=== PATIENT | female | born 1950 | race Caucasian/White ===

== ENCOUNTER → 2023-12-07 07:25 | Outpatient (REF) | payer OTHER, SELFPAY ==
[2023-12-07] MEDS: LEXISCAN 0.400000000000000022 MG IV (09:22)
[2023-12-07] MEDS: FLUSH (NSS) 1 FLUSH IV (09:23)
== END ==
LOC: RCS 07:25
PROVIDERS: ATTENDING PHYSICIAN Nurse Practitioner; FAMILY PHYSICIAN Family Medicine
DX: I25.10 Atherosclerotic heart disease of native coronary artery without angina pectoris (principal); E78.00 Pure hypercholesterolemia, unspecified; R07.89 Other chest pain; Z86.73 Personal history of transient ischemic attack (TIA), and cerebral infarction without residual deficits
CPT/HCPCS: 78452; 93017; A9500; J2785

== ENCOUNTER 2024-01-10 15:03 | Emergency (ER) | payer OTHER, SELFPAY ==
[2024-01-10 15:07] VITALS: BP 120/79
--- NOTE | 2024-01-10 16:47 | ED.MUSCINJ ---
HPI-Injury
General
Chief Complaint: Fall
Source: patient
Exam Limitations: none
Time Seen by Provider: 01/10/24 16:35
Nursing documentation reviewed up to this point in time: agreed with
Travel History
Have you had any contact with someone who has COVID-19?: No
Do you have any symptoms of coronavirus? Fever > 100 degrees, chills, cough, shortness of breath, sore throat, loss of taste or smell, muscle aches, or headache?: No
History of Present Illness-Injury
Is this injury a work related problem?: No
Is pt an associate of [facility]?: No
Initial Injury comments:
Patient states she was trying to carry groceries from car and fell. Hit face on pavement. No LOC. Able to get self up. Complains of abrasions to face, neck pain, ssternum pain, low back pain Brought to ED by spouse for eval
Past History
Past History
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 Improved greatly but with residual left hand and left leg weakness since. Also 'pins and needles' feeling in left leg since the stroke), HTN, Hypercholesterolemia and Other
(Diverticulitis )
ED Past Surgical History: Cardiac (stents 2004), Cholecystectomy and Orthopedic (Laminectomy 2006, bilateral rotator curr surgery. Limited ROM left arm due to rotator cuff problem.)
Social History
Tobacco: Non-smoker
Alcohol: Other
Drug: Other
Personal: Single
Living: with family (with daughter)
Employment: Employed
Family History
Family History: Other
Review of Systems
Review of Systems
Allergies reviewed?: Yes
All Other Systems: ROS reviewed and negative except as documented in HPI and ROS
Constitutional: Reports no symptoms
EENT: Reports no symptoms
Respiratory: Reports no symptoms
Cardiac: Reports no symptoms
ABD/GI: Reports no symptoms
: Reports no symptoms
Musculoskeletal: Reports joint pain (pain to sternum and low back.) and neck pain
Skin: Reports other (abrasions to face (forehead, nose, lip, chin), left dorsal hand)
Neurological: Reports no symptoms
Psychiatric: Reports no symptoms
Musculoskeletal Injury Exam
Musculoskeletal Injury Exam
Sternum:
Pain with Movement?: Moderate
Tender to palpation?: Moderate
Soft tissue swelling?: None
External deformity and angulation?: None
Joint effusion?: None
Contusion?: Moderate
Hematoma-local bleeding into tissue?: None
Strain- Sprain- Tear (Connective tissue injury)?: None
Crepitus with movement?: No
Joint instability?: No
Malalignment/deformity?: No
Range of motion: Limited
Distal skin color and temperature: normal-warm & good color
Capillary Refill: normal
Normal distal neurovascular exam?: No
Lower Back:
Pain with Movement?: Moderate
Tender to palpation?: Moderate
Soft tissue swelling?: None
External deformity and angulation?: None
Joint effusion?: None
Contusion?: None
Hematoma-local bleeding into tissue?: None
Strain- Sprain- Tear (Connective tissue injury)?: Moderate
Crepitus with movement?: No
Joint instability?: No
Malalignment/deformity?: No
Range of motion: Limited
Distal skin color and temperature: normal-warm & good color
Normal distal neurovascular exam?: Yes
Posterior Neck:
Pain with Movement?: Moderate
Tender to palpation?: Moderate
Soft tissue swelling?: None
External deformity and angulation?: None
Joint effusion?: None
Contusion?: None
Hematoma-local bleeding into tissue?: None
Strain- Sprain- Tear (Connective tissue injury)?: Moderate
Crepitus with movement?: No
Joint instability?: No
Malalignment/deformity?: No
Range of motion: Full
Distal skin color and temperature: normal-warm & good color
Capillary Refill: normal
Normal distal neurovascular exam?: Yes
Skin Exam
Abrasion
Face:
Description of abrasion: superfical/clean
Left Dorsal Hand:
Description of abrasion: superfical/clean
Phy Exam
General Physical Exam
General Presentation: well appearing and no apparent distress
General age: appears stated age
General Skin: warm and dry
General Habitus: normal
General Mental: alert
Pulmonary Exam
Pulmonary Exam: lungs clear and no respiratory distress
Gastrointestinal Exam
Gastrointestinal Exam: non tender, soft, no organomegaly, no pulsatile mass, non distended and no cva tenderness
Kandis Coma Scale
Eye Opening: Spontaneous
Verbal Response: Oriented
Motor Response: Obeys Commands
GCS Total Score: 15
Musculoskeletal Exam
Musculoskeletal Exam: neuro vasc intact and other (No hip, lower extremity pain. No upper extermity pain. Full rom bilateral upper and lower extremities)
Skin Exam
Skin Exam: normal color, warm/dry and no rash
Psychiatric Exam
Psychiatric Exam: normal mood/affect
Injury Course
Orders/Labs/Results
Orders:
Orders
01/10/24 15:23
Electrocardiogram (*1) Urgent
Reason for Study: Chest Pain
CT Cervical Spine W/o Iv Contr Urgent
Comment:
Reason For Exam: fall + hit face, on plavix
CT Head W/o Iv Contrast Urgent
Comment:
Reason For Exam: fall + hit face, on plavix
01/10/24 15:24
EKG- Treatment ONCE
01/10/24 16:05
CR Chest - 2 Views Urgent
Comment:
Reason For Exam: fall forward, lower sternal pain
01/10/24 16:46
Lumbar Spine Complete, 4 View [CR Lumbar Spine Comp Min 4 Vw*] Urgent
Comment:
Reason For Exam: fall, pain
Sternum 2 Views CR [CR Sternum Min 2 Views] Urgent
Comment:
Reason For Exam: fall, pain
*Radiology
Radiology exam reviewed: radiology read reviewed
*Pulse Oximetry
Patient hypoxic: no
*Critical Care Note
Total Time (30-74mins, 75-104mins- exclusive of procedures): Not Applicable
ED Attending Note
-
Portions of this chart may have been created with voice recognition software.� Occasional wrong word or��sound alike� substitutions may have occurred due to the inherent limitations of voice recognition software.
Discharge Plan
Departure
Patient Disposition: Home (Routine Discharge)
Date of Disposition: 01/10/24
Time of Disposition: 17:41
Patient with high blood pressure during this ER visit?: No
Condition: Good
Covid-19: Not Applicable
Discharge Problem:
Head injury, Chest wall contusion, Abrasion, multiple sites
Instructions: Low Back Pain (DC), Wound Care (DC), Head Injury in Adults (DC), Contusion (DC), Preventing falls in adults
Prescriptions:
No Action
hydrochlorothiazide 25 MG tablet
25 mg PO DAILY
duloxetine 60 MG capsule,delayed release(DR/EC)
60 mg PO BID
vitamins A,C,[id number] [PreserVision AREDS] 1 CAP capsule
1 cap PO BID
clopidogrel 75 MG tablet
75 mg PO DAILY Qty: 30 0RF
acetaminophen [Tylenol Extra Strength] 500 MG tablet
1,000 mg PO TID
trazodone 100 MG tablet
100 mg PO HS
simvastatin 20 MG tablet
20 mg PO QPM
nitroglycerin 0.4 MG tablet, sublingual
0.4 mg sublingual [id number] PRN (Reason: chest pain)
oxycodone 5 MG tablet
5 - 10 mg PO Q4HPRN PRN (Reason: moderate pain)
Patient Comments:
03/09/2022: last filled 03/01/22, 30 tabs for 5 days from [facility]
multivitamin with folic acid [Tab-A-Yuliya] 1 TABLET tablet
1 tab PO DAILY
albuterol sulfate 18 GM HFA aerosol inhaler
6.7 gm IH Q6HPRN PRN (Reason: shortness of breath) Qty: 1 0RF
Referrals:
Nadeem Hull PA-C [Family Provider] - Follow up in 2-3 days
Interventions
Interventions:
*Risk Screen - Suicide Last Done: 01/10/24 15:08
*General Assessment Last Done: 01/10/24 15:08
ED-Skin Assessment Last Done: 01/10/24 17:10
Discharge Date and Time
Print Language: EGYPTIAN
[2024-01-10 17:56] VITALS: BP 141/74
== END 2024-01-10 18:01 | disposition home or self-care (01) ==
LOC: EMR 15:03
PROVIDERS: EMERGENCY PHYSICIAN Emergency Medicine; FAMILY PHYSICIAN Physician Assistant Medical
DX: S00.81XA Abrasion of other part of head, initial encounter (principal); S00.511A Abrasion of lip, initial encounter; S00.31XA Abrasion of nose, initial encounter; S60.512A Abrasion of left hand, initial encounter; S09.90XA Unspecified injury of head, initial encounter; S20.219A Contusion of unspecified front wall of thorax, initial encounter; W19.XXXA Unspecified fall, initial encounter
CPT/HCPCS: 99285; 70450; 71046; 71120; 72110; 72125; 93005

== ENCOUNTER 2024-07-14 23:40 | Inpatient (IN) | payer OTHER, SELFPAY ==
[2024-07-14 19:02] VITALS: BP 138/76
--- NOTE | 2024-07-14 19:09 | ED.PDOC.TRB ---
ED Provider Triage
-
Patient seen by provider in Triage?: Seen in Triage
Attestation: A medical screening examination has been initiated by a qualified medical provider. Based on the assessment performed at this time, it has been determined that an emergent medical condition may exist and the patient has been informed
that further medical evaluation and possible additional diagnostic testing may be needed.
HPI: 73yoF here after a fall with head strike 1 week ago. She has a history of psoriasis. C/o swelling and significant pain to posterior scalp. Patient admits to picking at her scalp frequently. Also c/o nausea, diarrhea, and decreased appetite.
GENERAL: Alert , in no apparent distress
EYE: No visual abnormalities.
NECK: Trachea midline
ENT: Psoriasis noted to posterior scalp. There is an area of scabbing with surrounding erythema/warmth and significant tenderness.
LUNGS: No acute respiratory distress
NEUROLOGICAL: Alert and oriented
SKIN: Skin intact. No visible changes.
MUSCULOSKELETAL: Moving extremities normally
PSYCH: Normal and appropriate interaction.
This is a medical evaluation conducted in person to initiate diagnostic evaluation and provide initial therapeutics. Please see further documentation by the treating clinician.
CBC, CMP, and CT head ordered.
[2024-07-14 21:33] VITALS: BP 145/72
[2024-07-14 21:34] VITALS: BP 145/72
[2024-07-14 21:43] LABS: % Basophils 0.5 % (0-2); % Eosinophils 0.4 % (0-6); % Immature Granulocytes 1.2 % (0-0.5); % Lymphocytes 8.4 % (20.5-51.1); % Monocytes 6.4 % (1.7-9.3); % Neutrophils 83.1 % (42.2-75.2); Absolute Basophils 0.1 10^3/uL (0-0.2); Absolute Eosinophils 0.1 10^3/uL (0-0.7); Absolute Immature Granulocytes 0.3 10^3/uL (0-0.05); Absolute Lymphocytes 1.9 10^3/uL (1.2-3.4); Absolute Monocytes 1.4 10^3/uL (0.1-0.6); Absolute Neutrophils 18.6 10^3/uL (1.4-6.5); Hematocrit 36.6 % (37.0-47.0); Hemoglobin 13.2 g/dL (12.0-16.0); Mean Corp Hgb Conc. 36.1 g/dL (33.0-37.0); Mean Corpuscular Hgb 30.9 pg (27.0-31.0); Mean Corpuscular Volume 85.7 fL (81.0-99.0); Mean Platelet Volume 8.1 fL (7.4-10.4); Nucleated Red Blood Cells % 0 %; Platelet Count 253 10^3/uL (130-400); Red Blood Cell Count 4.27 10^6/uL (4.20-5.40); Red Cell Dist. Width 12.4 % (11.5-14.5); White Blood Cell Count 22.3 10^3/uL (4.8-10.8)
[2024-07-14 22:00] VITALS: BP 155/83
[2024-07-14 22:07] LABS: ALT (SGPT) 33 U/L (0-35); AST (SGOT) 33 U/L (14-36); Albumin 3.8 g/dl (3.5-5.0); Alkaline Phosphatase 175 U/L (38-126); Blood Urea Nitrogen 6 mg/dl (7-17); Calcium 9.4 mg/dl (8.4-10.2); Carbon Dioxide 30 mmol/L (22-30); Chloride 94 mmol/L (98-107); Glucose 117 mg/dl (70-99); Potassium 3.1 mmol/L (3.5-5.1); Sodium 137 mmol/L (135-145); Total Bilirubin 0.4 mg/dl (0.2-1.3); Total Protein 6.2 g/dl (6.3-8.2); eGFR > 60.00
--- NOTE | 2024-07-14 22:49 | ED.GENMED ---
History of Present Illness
General
Chief Complaint: Head Injury
Source: patient and family
Exam Limitations: none
Time Seen by Provider: 07/14/24 21:50
Nursing documentation reviewed up to this point in time: agreed with
History of Present Illness
History of Present Illness:
73-year-old female with a past medical history of CVA, hypertension, hyperlipidemia, psoriasis who presents to the ER for evaluation of painful lump on the back of the head associate with headaches and fatigue. Patient reports that she has had
itchy area on the occipital scalp for a week or 2. She says that she has been noticing increasing swelling and pain there�initially she thought it was related to a minor trauma on a kitchen cabinet but since then area has started to ooze and become
very red and painful and so she came to the ER for evaluation. She has not had fevers or chills but has had headache and mild nausea. She reports generalized malaise. She also reports mild sore throat�she says she was tested for COVID and flu and
these were negative. She says she was tested for strep and it was negative. She denies any earache. No drainage from the ear. She denies any neck pain. She denies any chest pain, shortness of breath, cough. Denies any significant abdominal
pain. She denies any other complaints. She is on Plavix.
Past History
Past History
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 Improved greatly but with residual left hand and left leg weakness since. Also 'pins and needles' feeling in left leg since the stroke), HTN, Hypercholesterolemia and Other
(Diverticulitis )
ED Past Surgical History: Cardiac (stents 2004), Cholecystectomy and Orthopedic (Laminectomy 2006, bilateral rotator curr surgery. Limited ROM left arm due to rotator cuff problem.)
Social History
Tobacco: Non-smoker
Alcohol: Other
Drug: Other
Personal: Single
Living: with family (with daughter)
Employment: Employed
Family History
Family History: Other
Review of Systems
Review of Systems
All Other Systems: ROS reviewed and negative except as documented in HPI and ROS
Constitutional: Reports fatigue; Denies fever
Respiratory: Denies cough or trouble breathing
Cardiac: Denies chest pain
Musculoskeletal: Reports muscle pain
Neurological: Reports headache; Denies dizzy
Phy Exam
Physical Exam
Physical Exam:
General: Awake, alert, oriented x3; no acute distress
Head: Normocephalic, patient has area of dry flaky skin on the occipital scalp extends towards the mastoid region and towards the crown of the head; there is a boggy central area with superficial wound some purulent drainage, no vesicles noted, area
is diffusely tender and warm
Eyes: Conjunctiva normal, EOMI
Ears: TMs clear bilaterally specifically right TM is clear and no swelling of the pinna on the right
Throat: Airway intact, handling secretions
Neck: Trachea midline, supple without meningismus
Lungs: Clear to auscultation bilaterally, no wheezing, rales, rhonchi
Heart: Regular rate and rhythm, no murmurs, gallops, or rubs
Abd: Soft, non distended, nontender
Neuro: No gross deficits
Skin: no rash
Extremities: Warm and well-perfused
Scores
Heart Failure Risk
Heart Failure Risk Score: Not Applicable
Heart Score for Chest Pain Patients
STEMI patient?: Not applicable
Withdrawal Assessment of Alcohol
Withdrawal Assessment Completed?: Not applicable
Course
Orders/Labs/Results
Orders:
Orders
07/14/24 19:28
CT Head W/o Iv Contrast Urgent
Comment:
Reason For Exam: Head injury, posterior scalp swelling/redness
07/14/24 21:31
Complete Blood Count/With Diff Urgent
Comprehensive Metabolic Panel Urgent
07/14/24 22:44
0.9% Sodium Chloride 1000 ml [Nss] 1,000 ml IV BOLUS
Potassium Chloride [KCl] 40 meq PO NOW STA
07/14/24 23:00
Flush (0.9% Sodium Chloride) [Flush (Nss)] See Dose Instructions IV PER PROTOCOL
07/14/24 23:10
CeFAZolin 1 GRAM [Ancef] 1 gram in 5 ml IV NOW
07/14/24 23:15
Terbinafine HCl [LamISIL] 250 mg PO ONCE ONE
07/14/24 23:17
Admit/Transfer Patient As Directed
Co-Sign Provider:
Level of Care: Inpatient admission
Assign to:: Medical/Surgical
Physician / Group: Htay
Diagnosis: Cellulitis, possible infected hematoma
Reason for Hospitalization: IV abx, Surgical consult
Expected length of stay greater than two midnights?: Yes
ELOS- Estimated Length of Stay in days: 3
I certify the patient meets the requirements for IP care: Yes
07/14/24 23:19
PRN Pain Medication Management As Directed
May give lesser potent ordered pain med per pt: Yes
preference::
Protocol:: Medication orders for pain may be administered in a
manner that supports deferring to patient preference
when the pt is:
- Requesting an ordered lesser potent pain medication.
Least to most potent pain medications are defined
as: acetaminophen < NSAID < tramadol < opioids
(morphine, oxycodone, hydromorphone).
- Requesting a lesser dose of the same medication IF
ORDERED.
- Requesting a less intrusive route of administration
if both routes are prescribed by the provider (PO <
IV).
07/14/24 23:21
Code Status As Directed
Resuscitation Status: Full Code
07/14/24 23:23
Pantoprazole [Protonix IV] 40 mg IV NOW STA
07/14/24 23:26
CeFAZolin 1 GRAM [Ancef] 1 gram in 5 ml IV NOW
07/14/24 23:30
0.9% Sodium Chloride [Nss (Preservative Free)] 10 ml IV NOW STA
07/15/24 01:13
Acetaminophen [Tylenol] 650 mg PO Q4HPRN PRN
Ondansetron Injectable [Zofran] 4 mg IV Q6HPRN PRN
07/15/24 01:13
Consult Notification Routine
Specialty to Notify: Surgical
SURGICAL CONSULT Routine
Consulting Provider: Darryn Sam
Was physician already notified: No
Reason for consult: Possible Infected Scalp Hematoma
Activity As Directed
Activity Level: Out of Bed-Early Mobility
With Assistance
I&O [Intake/ Output] As Directed
Frequency: q12h
Pneumatic Compression Sleeves As Directed
Type: Knee high
Vital Signs As Directed
Frequency: Per unit guidelines
Weight As Directed
Frequency: Daily
DX Deep Vein Thrombosis Video Routine
07/15/24 Breakfast
Regular
At Your Request: Full Participation
Basic Metabolic Panel IN AM
Complete Blood Count/No Diff IN AM
Magnesium IN AM
07/15/24 08:00
CeFAZolin 2 GRAM [Ancef] 2 grams in 10 ml IV Q8H
Duloxetine Delayed Release [Cymbalta Delayed Release] 60 mg PO BID
Pantoprazole [Protonix] 40 mg PO DAILY
07/15/24 18:00
Atorvastatin [Lipitor] 10 mg PO QPM
07/15/24 22:00
Trazodone [Desyrel] 100 mg PO HS
Abnormal Lab Results
07/14/24
21:31
WBC 22.3 H 10^3/uL
(4.8-10.8)
Hct 36.6 L %
(37.0-47.0)
Abs Immat Gran (auto) 0.3 H 10^3/uL
(0-0.05)
Absolute Neuts (auto) 18.6 H 10^3/uL
(1.4-6.5)
Absolute Monos (auto) 1.4 H 10^3/uL
(0.1-0.6)
Immature Gran % 1.2 H %
(0-0.5)
Neutrophils % 83.1 H %
(42.2-75.2)
Lymphocytes % 8.4 L %
(20.5-51.1)
Potassium 3.1 L mmol/L
(3.5-5.1)
Chloride 94 L mmol/L
(98-107)
BUN 6 L mg/dl
(7-17)
Glucose 117 H mg/dl
(70-99)
Alkaline Phosphatase 175 H U/L
(38-126)
Total Protein 6.2 L g/dl
(6.3-8.2)
07/14/24 21:31
07/14/24 21:31
Vital Signs
Initial and Last Documented VS:
Initial Vital Signs
Temp Pulse Resp BP Pulse Ox
36.6 C 86 24 138/76 100
07/14/24 19:02 07/14/24 19:02 07/14/24 19:02 07/14/24 19:02 07/14/24 19:02
Last Documented Vital Signs
Temp Pulse Resp BP Pulse Ox
37.4 C 81 18 125/62 92
07/15/24 01:38 07/14/24 21:33 07/14/24 21:33 07/15/24 02:09 07/15/24 02:30
MDM/Problems Addressed
Differential Diagnosis Includes:
Cellulitis, kerion/fungal infection, shingles
MDM/Problems Addressed:
73-year-old female presents for evaluation of painful bump on the occipital scalp that developed after initially having an itchy area which she reports is psoriasis. Has had multiple constitutional symptoms since. She did have a minor head trauma
about a week ago as well. Vital signs normal here. Exam as above. She had labs in triage including CBC which shows leukocytosis to 22. CMP shows mild hypokalemia. CT head was negative for any acute intracranial pathology. She has an area in
the right occipital scalp does not clearly appear to be a drainable abscess could be phlegmonous changes. Suspect that this is likely cellulitis on area of psoriasis although differential would also include fungal infection with kerion. No
vesicles to suggest shingles. I think given extent, systemic symptoms and developing collection with drainage we will plan to admit for treatment�will plan to treat with IV Ancef, cover with antifungal as well. Case discussed with hospitalist for
admission.
*Radiology
Radiology exam reviewed: radiology read reviewed
*Pulse Oximetry
Patient hypoxic: no
*Critical Care Note
Total Time (30-74mins, 75-104mins- exclusive of procedures): Not Applicable
Data Reviewed
Review of Other/Old Records Reveals: Labs and Records
Source: patient and family
Patient Management
Discussion with other providers: Hospitalist (Discussed with hospitalist) and Radiologist (Discussed with radiologist)
Escalation/DeEscalation of care consider admission/obs:
Admission indicated
ED Attending Note
-
Portions of this chart may have been created with voice recognition software.� Occasional wrong word or��sound alike� substitutions may have occurred due to the inherent limitations of voice recognition software.
Discharge Plan
Departure
Patient Disposition: Admit
Date of Disposition: 07/14/24
Time of Disposition: 22:49
Admit to doctor: Edu
Presentation/result/management discussed w/ accepting MD/DO: Hospitalist
Discharge Problem:
Cellulitis of scalp
Interventions
Interventions:
*Risk Screen - Suicide Last Done: 07/14/24 18:54
*General Assessment Last Done: 07/15/24 00:37
*Neglect/Abuse Screening Last Done: 07/14/24 19:02
ED- Fall Risk Assessment Last Done: 07/15/24 00:37
*ED COVID-19 Vaccine History Last Done: 07/15/24 00:37
ED- Neurological Assessment Last Done: 07/14/24 21:24
ED-Skin Assessment Last Done: 07/14/24 21:24
[2024-07-14 23:00] VITALS: BP 150/69
--- NOTE | 2024-07-14 23:04 | W.PN.UPDATE ---
Update Note
Progress Note Update
This note serves as an addendum to the H&P by diamond driller helper ANCA Irais HOPPERURGSaba URENA
HPI
73F HX CVA in 2002 with left sided hemiparesis, CAD with stent, HTN, Hypercholesterolemia, Diverticulitis pw
fall with head strike 1 week ago.
- reports swelling and significant pain to posterior scalp.
- HX psoriasis.
- Admits to picking at her scalp frequently.
- HX occipital trauma by hitting head with shelf when she bend over then stand up
- reports nausea, diarrhea, and decreased appetite.
PHX: see above
Vital Signs
Temp Pulse Resp BP Pulse Ox
98 F 81 18 145/72 95
07/14/24 19:02 07/14/24 21:33 07/14/24 21:33 07/14/24 21:33 07/14/24 21:33
PE
Gen: Not toxic
HEENT: Psoriasis on posterior scalp. POS area of scabbing with surrounding erythema/warmth and significant tenderness.
Neck: supple
Lung clear s:
Cor: RRR S1 S2
Abdomen: benign exam
ACTING TEACHER: AAO3, NFND
MS: unremarkable
Psych: appropriate
Laboratory Tests
07/14/24
21:31
WBC 22.3 H
Potassium 3.1 L
Chloride 94 L
Creatinine 0.6
eGFR > 60.00
HCT: No acute intracranial abnormality. There is a likely large right posterior scalp hematoma.
Last hospitalist admission: DATE OF ADMISSION: 03/09/2022 - DATE OF DISCHARGE: 03/11/2022
DC Dx; Dyspnea
ASSESSMENT & PLAN
Pending Rx reconciliation
Post scalp SSTI due to suspected infected traumatic scalp hematoma
CT suggest large scalp swelling suspect hematoma
HX occipital trauma by hitting head with shelf when she bend overthen stand up
- agree with IV Cefazolin
- GS consult to evaluate possible I & D
HX CVA (2002) with residual left hand and left leg weakness and paraesthesia-
- Hold STREET SWEEPER Plavix
- cont Zocor
Essential HTN; controlled
- On STREET SWEEPER HCTZ
HX CAD s/p stent -stable
- Hold Plavix
- cont. statin
DVT Px: SCD
Full code
IP MS
--- NOTE | 2024-07-14 23:15 | HPS.HSE ---
Family Physician
-
Family Physician: Hipolito Demarco
Chief Complaint
-
Head Wound
History of Present Illness
Patient is a 73 y/o female past medical history of ASCVD, Hypertension, Hyperlipidemia and Depression who presents with posterior head wound. Patient reports one week ago she was bending over to get something in a tote on the floor, and when she
stood up she hit the back of her head on a shelf. She initially developed a bump on her head, but notes over the past several days it has gotten worse and it now seems to be oozing. She reports increasing pain and redness of the back of head now
extending to the left. She notes she had a low grade fever, and has been experiencing sweats and chills.
Medical History
Past Medical History
Past Medical History: Reports Other
Additional Past Medical History:
Hemorrhagic CVA in 2002
Coronary Artery Disease s/p Stents in 2004
Essential Hypertension
Hyperlipidemia
Depression
Psoriasis
Past Surgical History: Reports Other
Additional Past Surgical History:
Cardiac Stents
Cholecystectomy
Colon Resection for Diverticulitis
Laminectomy
Bilateral Rotator Cuff Surgery
Left Shoulder Replacement
Left Hip Replacement
Social History
Tobacco: Non-smoker
Alcohol: None
Family History
Family History: Not pertinent
Allergies / Home Medications
Allergies reflects when Allergies were last updated in [employer].
Home Medications with original date entered in [employer]
Allergy/Medication List:
Allergies
Allergy/AdvReac Type Severity Reaction Status Date / Time
gabapentin [From Neurontin] Allergy LEG Verified 07/14/24 19:11
SWELLING
hydromorphone HCl Allergy ITCH ALL Verified 07/14/24 19:11
[From Dilaudid] OVER
Iodinated Contrast Media Allergy Anaphylaxis Verified 07/14/24 19:11
Home Medications
duloxetine 60 mg capsule,delayed release 60 mg PO BID Mental Health/Anxiety 10/19/16
hydrochlorothiazide 25 mg tablet 25 mg PO DAILY Fluid retention/Swelling 10/19/16
vitamins A,C,H-jaad-dkbhis 4,296 mcg-226 mg-90 mg capsule (PreserVision AREDS) 1 cap PO BID Supplement 10/19/16
clopidogrel 75 mg tablet 75 mg PO DAILY #30 tabs 10/21/16
multivitamin with folic acid 400 mcg tablet (Tab-A-Yuliya) 1 tab PO DAILY Supplement 03/09/22
nitroglycerin 0.4 mg sublingual tablet 0.4 mg sublingual [id number] PRN chest pain 03/09/22
simvastatin 20 mg tablet 20 mg PO QPM High cholesterol 03/09/22
trazodone 100 mg tablet 100 mg PO HS Sleep 03/09/22
acetaminophen 650 mg tablet,extended release 1,300 mg PO Q12H 07/14/24
Review of Systems
-
A 12 point ROS was completed and negative except as noted: Yes
Constitutional: Reports Chills
Respiratory: Denies Cough or Trouble Breathing
Cardiac: Denies Chest Pain or Palpitations
Abdomen/GI: Reports Nausea; Denies Abdominal Pain or Vomiting
Physical Exam
Vital Signs
Vital Signs
Temp Pulse Resp BP Pulse Ox
98 F 81 18 145/72 95
07/14/24 19:02 07/14/24 21:33 07/14/24 21:33 07/14/24 21:33 07/14/24 21:33
Physical Exam
General: Comfortable and Conversant
HEENT: Anicteric and Moist mucous membranes
Respiratory: Clear and Non Labored Respirations
Cardiac: S1/S2 and Regular Rhythm
GI: Soft and Non Tender
Musculoskeletal: No Clubbing, No Cyanosis and No Edema
Skin: Warm, Dry and Other (Area of psoriasis posterior right scalp; Palpable hematoma posterior right scalp with moderate surrounding area; Small openning noted with apparent serosanguinous drainage)
Neuro: Awake, Alert, Oriented and Nonfocal/grossly intact
Psych: Calm
Laboratory Results
-
07/14/24 21:31
07/14/24 21:31
Laboratory Results
Total Bilirubin 0.4 mg/dl (0.2-1.3) 07/14/24 21:31
AST 33 U/L (14-36) 07/14/24 21:31
ALT 33 U/L (0-35) 07/14/24 21:31
Alkaline Phosphatase 175 U/L (38-126) H 07/14/24 21:31
Data Reviewed
-
Lab Data: Labs Reviewed by me
Old Records: Reviewed
Impression/Plan
-
Posterior Scalp Cellulitis with possible Infected Hematoma
-Consult General Surgery
-Continue Ancef
Hypokalemia, likely due to HCTZ
-Replace potassium
Coronary Artery Disease s/p Stents
-Plavix on hold due to posterior scalp hematoma
Essential Hypertension
-Hold HCTZ
Hyperlipidemia
-Continue simvastatin
Depression
-Continue Cymbalta and Trazodone
Hx Hemorrhagic CVA in 2002
DVT Proph: SCDs
Code Status: Full Code
[2024-07-14] MEDS: KCL 40 MEQ PO (23:20)
[2024-07-14] MEDS: NSS 1000 IV (23:24)
[2024-07-14] MEDS: ANCEF 5 IV ×2 (23:28→23:56)
[2024-07-14] MEDS: PROTONIX IV 40 MG IV (23:56)
[2024-07-14] MEDS: NSS (PRESERVATIVE FREE) 10 ML IV (23:57)
[2024-07-15] VITALS (13 sets, daily range): BP systolic 121–158; BP diastolic 56–76; PULSE 68; BMI 26.8; BMI 27.0
[2024-07-15] MEDS: TYLENOL 650 MG PO ×3 (01:27→15:32)
[2024-07-15 05:48] LABS: Hematocrit 34.6 % (37.0-47.0); Hemoglobin 12.2 g/dL (12.0-16.0); Mean Corp Hgb Conc. 35.3 g/dL (33.0-37.0); Mean Corpuscular Hgb 31.1 pg (27.0-31.0); Mean Corpuscular Volume 88.3 fL (81.0-99.0); Mean Platelet Volume 8.1 fL (7.4-10.4); Platelet Count 205 10^3/uL (130-400); Red Blood Cell Count 3.92 10^6/uL (4.20-5.40); Red Cell Dist. Width 12.2 % (11.5-14.5)
[2024-07-15 06:17] LABS: Blood Urea Nitrogen 3 mg/dl (7-17); Calcium 8.2 mg/dl (8.4-10.2); Carbon Dioxide 27 mmol/L (22-30); Chloride 103 mmol/L (98-107); Estimated Creatinine Clearance 84 ml/min; Glucose 111 mg/dl (70-99); Magnesium 1.8 mg/dl (1.6-2.3); Potassium 3.2 mmol/L (3.5-5.1); Sodium 141 mmol/L (135-145); eGFR > 60.00
[2024-07-15] MEDS: ANCEF 10 IV ×2 (08:01→15:32)
[2024-07-15] MEDS: PROTONIX 40 MG PO (08:02)
[2024-07-15] MEDS: CYMBALTA DELAYED RELEASE 60 MG PO ×2 (08:02→23:16)
[2024-07-15] MEDS: KCL 40 MEQ PO (11:41)
--- NOTE | 2024-07-15 11:41 | W.PN.HOSP.TC ---
Today's Communication/Plan
-
Stool studies
Continue antibiotics
Replete potassium
PT/OT
Assessment / Plan
Assessment / Plan
Gen-AAOx3, NAD
HEENT-NC, AT, anicteric, clear oral mm
Neck-supple
CV-reg, no M, +S1/S2
Lungs-clear B/L
Abd-soft, NT, ND
Ext-no edema
Musculoskeletal-no cyanosis, clubbing
Skin-warm and dry, large posterior scalp open wound, hematoma with drainage and surrounding cellulitis
Neuro-grossly non-focal
Psych-calm, cooperative
Posterior scalp skin and soft tissue infection -due to infected hematoma with drainage. Continue IV antibiotics. General surgery consulted for opinion on I&D. Plavix on hold.
Acute diarrhea -unclear if due to adverse drug reaction versus other etiology. Check stool studies. She was using as needed Imodium prior to admission.
Hypokalemia -possibly due to GI losses. Magnesium normal. Continue oral repletion.
Ambulatory dysfunction -uses a cane. Consult PT/OT.
CAD -history of stents 2004. Plavix on hold due to hematoma. Resume as soon as possible.
History of hemorrhagic stroke 2002 -left hemiparesis.
Essential hypertension -stable.
Hyperlipidemia -on simvastatin.
Depression
Diverticulosis
Psoriasis
Full code
Anticipated Discharge: Within 24 hours
Subjective/Interval History
-
Date of Service: July 15, 2024
Patient seen and examined. Complaining of diarrhea.
Objective Data
-
Labs:
Laboratory Results
07/15/24
05:37
WBC 21.0 H
Hgb 12.2
Hct 34.6 L
Plt Count 205
Sodium 141
Potassium 3.2 L
Chloride 103
Carbon Dioxide 27
BUN 3 L
Creatinine 0.5 L
Glucose 111 H
Calcium 8.2 L
Vital Signs:
Vital Signs
Temp Pulse Resp BP Pulse Ox
98.4 F 80 18 135/65 96
07/15/24 08:06 07/15/24 08:06 07/15/24 08:06 07/15/24 08:06 07/15/24 08:06
Review of Systems
-
History Source: Patient
All other systems: Reviewed and negative
--- NOTE | 2024-07-15 12:19 | CON.GS ---
Medical History
-
Chief Complaint: Scalp hematoma
History of Present Illness:
Patient is a 73 yo F with a PMH of HTN, HLD, CAD s/p PCI with stents in 2004 (on DAPT, LD Plavix on 07/13), psoriasis, s/p laparoscopic cholecystectomy, s/p partial colectomy for diverticulitis, s/p multiple orthopedic interventions. Ms. Muniz
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 She notes a bump overlying her head. Intermittent oozing. No worsening pain. Low-grade fevers.
Associated headache. No visual disturbances. She denies loss of consciousness during the episode. Of note, she has psoriasis overlying her posterior scalp. She states that this is better chronically.
Past Medical History
Past Medical History: CAD, HTN, Hypercholesterolemia, Psychiatric (Depression/anxiety) and Other ( Psoriasis)
Past Surgical History: Bowel Resection (Partial colectomy for diverticulitis), Cardiac (PCI with stents), Cholecystectomy and Orthopedic (Laminectomy, bilateral rotator cuff, LEFT shoulder, LEFT hip)
Social History
Tobacco: Non-Smoker
Alcohol: None
Drug: None
Family History
Family History: Reviewed & Not Pertinent
Allergies / Home Medications
Allergy/AdvReac Type Severity Reaction Status Date / Time
gabapentin [From Neurontin] Allergy LEG Verified 07/14/24 19:11
SWELLING
hydromorphone HCl Allergy ITCH ALL Verified 07/14/24 19:11
[From Dilaudid] OVER
Iodinated Contrast Media Allergy Anaphylaxis Verified 07/14/24 19:11
�Medication �Instructions �Recorded �Confirmed �Type
duloxetine 60 mg capsule,delayed 60 mg PO BID Mental Health/Anxiety 10/19/16 07/15/24 History
release
hydrochlorothiazide 25 mg tablet 25 mg PO DAILY Fluid 10/19/16 07/15/24 History
retention/Swelling
vitamins A,C,Q-wmbf-muzopt 4,296 1 cap PO BID Supplement 10/19/16 07/15/24 History
mcg-226 mg-90 mg capsule
(PreserVision AREDS)
clopidogrel 75 mg tablet 75 mg PO DAILY #30 tabs 10/21/16 07/15/24 Rx
multivitamin with folic acid 400 1 tab PO DAILY Supplement 03/09/22 07/15/24 History
mcg tablet (Tab-A-Yuliya)
nitroglycerin 0.4 mg sublingual 0.4 mg sublingual [id number] PRN 03/09/22 07/15/24 History
tablet chest pain
simvastatin 20 mg tablet 20 mg PO QPM High cholesterol 03/09/22 07/15/24 History
trazodone 100 mg tablet 100 mg PO HS Sleep 03/09/22 07/15/24 History
acetaminophen 650 mg 1,300 mg PO Q12H 07/14/24 07/15/24 History
tablet,extended release
cyclosporine 0.05 % eye drops in a 1 drp BOTH EYES Q12H 07/15/24 07/15/24 History
dropperette (Restasis)
loperamide 2 mg tablet 2 mg PO BIDPRN PRN diarrhea 07/15/24 07/15/24 History
tramadol 50 mg tablet 50 mg PO BIDPRN PRN moderate pains 07/15/24 07/15/24 History
Review of Systems
-
A 10 point review of systems was completed, and was negative except as per HPI.
Physical Exam
Vital Signs
Temp Pulse Resp BP Pulse Ox
98.4 F 80 18 135/65 96
07/15/24 08:06 07/15/24 08:06 07/15/24 08:06 07/15/24 08:06 07/15/24 08:06
07/14/24 07/15/24 07/16/24
06:59 06:59 06:59
Actual Weight 77.467 kg 78.1 kg
Body Mass Index (BMI) 27.0
Lab Results
07/15/24 05:37
07/15/24 05:37
WBC 21.0 10^3/uL (4.8-10.8) H 07/15/24 05:37
Hgb 12.2 g/dL (12.0-16.0) 07/15/24 05:37
Hct 34.6 % (37.0-47.0) L 07/15/24 05:37
Plt Count 205 10^3/uL (130-400) 07/15/24 05:37
Abs Immat Gran (auto) 0.3 10^3/uL (0-0.05) H 07/14/24 21:31
Neutrophils % 83.1 % (42.2-75.2) H 07/14/24 21:31
Physical Exam
General: Well Developed, Well Nourished and No Apparent Distress
HEENT: Other (Posterior scalp with 6 to 7 cm area of swelling, slightly firm, no significant induration, dried blood and scab overlying, surrounding blanching erythema, minimal tenderness, no active drainage)
Respiratory: Non Labored Respirations
GI: Soft, Non Tender and Non Distended
Musculoskeletal: No Edema
Skin: Warm and Dry
Neuro: Nonfocal/Grossly Intact
Data Reviewed
-
CT Scan: Image Personally Visualized and interpreted and Report Reviewed by me
Labs: Labs Reviewed by me
Assessment / Plan
-
Patient is a 73 yo F p/w traumatic posterior scalp hematoma with question of superimposed infection
Infections of the scalp are rare due to the robust blood supply, however, certainly possible especially with underlying hematoma and poor hygiene/attention over the previous week. Physical exam clouded by underlying psoriasis with baseline
erythema. CT scan without clear rim-enhancing collection or air. Elevated white count is concerning. No fever since admission. Patient is a poor surgical candidate at this time given recent Plavix as well as oral intake just prior to the
encounter. No need for emergent operative drainage or intervention at this time. Recommend compression with ice as well as IV antibiotics. Will continue to monitor and may need operative exploration and drainage if no improvement over the ensuing
24 to 48 hours. All questions answered.
-- NPO PM
-- Hold Plavix
-- Abx: Ancef
-- Ice and compression
[2024-07-15] MEDS: LIPITOR 10 MG PO (17:58)
--- NOTE | 2024-07-15 18:12 | PTCARENOTE ---
admitted to room 324 from ED. VSS. AOx3. Able to ambulate w/ supervision and own single point cane. Discussed plan of care. Hematoma noted, outlined w/ skin marker, ice applied. Encouraged to continue to make needs known.
[2024-07-15] MEDS: KCL 20 MEQ PO (23:16)
[2024-07-15] MEDS: DESYREL 100 MG PO (23:44)
[2024-07-15] MEDS: TYLENOL 1000 MG PO (23:58)
[2024-07-16] MEDS: ANCEF 10 IV ×3 (00:15→16:30)
[2024-07-16 06:26] LABS: % Basophils 0.4 % (0-2); % Eosinophils 0.7 % (0-6); % Immature Granulocytes 1.9 % (0-0.5); % Lymphocytes 11.6 % (20.5-51.1); % Neutrophils 79.4 % (42.2-75.2); Absolute Basophils 0.1 10^3/uL (0-0.2); Absolute Eosinophils 0.1 10^3/uL (0-0.7); Absolute Immature Granulocytes 0.3 10^3/uL (0-0.05); Absolute Lymphocytes 2.1 10^3/uL (1.2-3.4); Absolute Monocytes 1.1 10^3/uL (0.1-0.6); Absolute Neutrophils 14.1 10^3/uL (1.4-6.5); Hematocrit 33.7 % (37.0-47.0); Mean Corp Hgb Conc. 35.6 g/dL (33.0-37.0); Mean Corpuscular Hgb 31.7 pg (27.0-31.0); Mean Corpuscular Volume 89.2 fL (81.0-99.0); Mean Platelet Volume 8.1 fL (7.4-10.4); Nucleated Red Blood Cells % 0 %; Platelet Count 220 10^3/uL (130-400); Red Blood Cell Count 3.78 10^6/uL (4.20-5.40); Red Cell Dist. Width 12.5 % (11.5-14.5); White Blood Cell Count 17.8 10^3/uL (4.8-10.8)
[2024-07-16 07:00] VITALS: BP 94/58
[2024-07-16 07:07] LABS: Blood Urea Nitrogen 5 mg/dl (7-17); Calcium 8.7 mg/dl (8.4-10.2); Carbon Dioxide 26 mmol/L (22-30); Chloride 103 mmol/L (98-107); Estimated Creatinine Clearance 84 ml/min; Glucose 98 mg/dl (70-99); Potassium 3.8 mmol/L (3.5-5.1); Sodium 140 mmol/L (135-145); eGFR > 60.00
--- NOTE | 2024-07-16 08:00 | PTCARENOTE ---
@6500;Verbally instructed TERRI Sheridan ,on pt's c/o #10 pain at hematoma site and headache.Tylenol 1000mg po ordered and administered.
[2024-07-16] MEDS: CYMBALTA DELAYED RELEASE 60 MG PO ×2 (08:02→23:05)
[2024-07-16] MEDS: PROTONIX 40 MG PO (08:02)
[2024-07-16] MEDS: KCL 20 MEQ PO ×2 (08:03→23:00)
[2024-07-16] MEDS: ULTRAM 25 MG PO ×2 (11:05→22:55)
[2024-07-16] MEDS: 0.45%NACL 1000 IV (11:06)
--- NOTE | 2024-07-16 13:18 | W.PN.HOSP.TC ---
Today's Communication/Plan
-
Continue antibiotics
CBC in the morning
General Surgery follow-up
Assessment / Plan
Assessment / Plan
Gen-AAOx3, NAD
HEENT-NC, AT, anicteric, clear oral mm
Neck-supple
CV-reg, no M, +S1/S2
Lungs-clear B/L
Abd-soft, NT, ND
Ext-no edema
Musculoskeletal-no cyanosis, clubbing
Skin-warm and dry, large posterior scalp open wound, hematoma with drainage and surrounding cellulitis
Neuro-grossly non-focal
Psych-calm, cooperative
Posterior scalp skin and soft tissue infection -due to infected hematoma with drainage. Suspect patient was picking at her wound prior to admission which may have triggered the infection of the hematoma.
Continue IV antibiotics. Plavix on hold for potential incision and drainage by general surgery currently recommends holding off.
Afebrile today, WBCs trending down. Cellulitis surrounding the wound looks improved today compared to yesterday. Drainage appears to be improving as well.
Due to complaints of ongoing scalp pain from the wound infection tramadol as needed added.
Acute diarrhea -unclear if due to adverse drug reaction versus other etiology. No diarrhea so far today. If diarrhea recurs, send stool studies.
Hypokalemia -possibly due to GI losses. Magnesium normal. Continue oral repletion. Potassium improving.
Ambulatory dysfunction -uses a cane. PT/OT recommend home health.
CAD -history of stents 2004. Plavix on hold due to hematoma. Resume as soon as possible.
History of hemorrhagic stroke 2002 -left hemiparesis.
Essential hypertension -stable.
Hyperlipidemia -on simvastatin.
Depression
Diverticulosis
Psoriasis
Full code
Anticipated Discharge: Within 24 hours
Subjective/Interval History
-
Date of Service: July 16, 2024
Patient seen and examined. Complaining of pain over scalp wound.
Objective Data
-
Labs:
Laboratory Results
07/16/24
06:16
WBC 17.8 H
Hgb 12.0
Hct 33.7 L
Plt Count 220
Sodium 140
Potassium 3.8
Chloride 103
Carbon Dioxide 26
BUN 5 L
Creatinine 0.5 L
Glucose 98
Calcium 8.7
Vital Signs:
Vital Signs
Temp Pulse Resp BP Pulse Ox
98.3 F 76 16 94/58 94
07/16/24 07:00 07/16/24 07:00 07/16/24 07:00 07/16/24 07:00 07/16/24 10:23
Review of Systems
-
History Source: Patient
All other systems: Reviewed and negative
--- NOTE | 2024-07-16 14:48 | W.PN.GS2 ---
Today's Communication / Plan
-
IV abx
Assessment / Plan
-
73F with suspected infected scalp hematoma
Improving on abx
No plan for surgical intervention
Cont IV abx
OK for diet, ADAT
GS will follow peripherally
Subjective Data
-
Date of Service: July 16, 2024
AFVSS, no complaints
Objective Data
-
Intake and Output
07/15/24 07/16/24 07/17/24
06:59 06:59 06:59
Other:
Number of approximated MODERATE 2
amounts of urine
Vital Signs
Temp Pulse Resp BP Pulse Ox
98.3 F 76 16 94/58 94
07/16/24 07:00 07/16/24 07:00 07/16/24 07:00 07/16/24 07:00 07/16/24 10:23
Lab Results
07/16/24 06:16
07/16/24 06:16
Calcium 8.7 mg/dl (8.4-10.2) 07/16/24 06:16
Magnesium 1.8 mg/dl (1.6-2.3) 07/15/24 05:37
Total Bilirubin 0.4 mg/dl (0.2-1.3) 07/14/24 21:31
AST 33 U/L (14-36) 07/14/24 21:31
ALT 33 U/L (0-35) 07/14/24 21:31
Alkaline Phosphatase 175 U/L (38-126) H 07/14/24 21:31
Total Protein 6.2 g/dl (6.3-8.2) L 07/14/24 21:31
Albumin 3.8 g/dl (3.5-5.0) 07/14/24 21:31
Physical Exam
-
Gen: NAD
Scalp, psoriatic lesion with scant serous weeping and crusting, erythema has retreated from drawn border
[2024-07-16 15:00] VITALS: BP 92/70
[2024-07-16 15:08] VITALS: BP 92/70; PULSE 85; O2SAT 95
--- NOTE | 2024-07-16 16:46 | CM ---
Reviewed chart, met with patient to obtain information for assessment. Patient stated that she lives alone in a single home with no steps to enter. She is all on one floor. She described herself as independent with her ADLs, personal care, dressing
and bathing. She does not have an assistive device to help support her ambulation but she owns a quad cane. She can do sanforizer, cook, clean and do laundry. She drives and can get herself to all of her appointments and does all of her own
shopping.
Patient has had VN in the past through [place].
She has been to SNF at [facility].
Patient has a prescription plan and uses, [facility] in [place] for all of her medications.
Patient's PCP is, Hipolito Demarco.
Patient is hoping to be able to return home when stable. She would be agreeable to VN.
Plan: Case management will continue to follow and assist with discharge planning. Tentative Home VN if needed.
[2024-07-16] MEDS: LIPITOR 10 MG PO (17:17)
[2024-07-16] MEDS: DESYREL 100 MG PO (22:57)
[2024-07-16 23:37] VITALS: BP 141/68
--- NOTE | 2024-07-17 00:59 | PTCARENOTE ---
RN paged for new IV
R hand IV dressing changed, blood return noted.
New IV placed #20 in R AC, flushed well and blood return noted.
Patient tolerated well.
[2024-07-17] MEDS: ANCEF 10 IV ×4 (01:11→23:53)
[2024-07-17] MEDS: TYLENOL 1000 MG PO (02:14)
[2024-07-17 06:00] VITALS: BMI 27.0
[2024-07-17 07:20] LABS: % Basophils 0.5 % (0-2); % Eosinophils 0.9 % (0-6); % Immature Granulocytes 1.9 % (0-0.5); % Monocytes 6.6 % (1.7-9.3); % Neutrophils 76.1 % (42.2-75.2); Absolute Basophils 0.1 10^3/uL (0-0.2); Absolute Eosinophils 0.1 10^3/uL (0-0.7); Absolute Immature Granulocytes 0.3 10^3/uL (0-0.05); Absolute Lymphocytes 2.2 10^3/uL (1.2-3.4); Absolute Neutrophils 11.9 10^3/uL (1.4-6.5); Hematocrit 32.3 % (37.0-47.0); Hemoglobin 11.1 g/dL (12.0-16.0); Mean Corp Hgb Conc. 34.4 g/dL (33.0-37.0); Mean Corpuscular Hgb 30.1 pg (27.0-31.0); Mean Corpuscular Volume 87.5 fL (81.0-99.0); Mean Platelet Volume 8.3 fL (7.4-10.4); Nucleated Red Blood Cells % 0 %; Platelet Count 226 10^3/uL (130-400); Red Blood Cell Count 3.69 10^6/uL (4.20-5.40); Red Cell Dist. Width 12.6 % (11.5-14.5); White Blood Cell Count 15.7 10^3/uL (4.8-10.8)
[2024-07-17 08:01] VITALS: BP 105/50
[2024-07-17 08:09] LABS: Blood Urea Nitrogen 6 mg/dl (7-17); Calcium 8.6 mg/dl (8.4-10.2); Carbon Dioxide 26 mmol/L (22-30); Chloride 102 mmol/L (98-107); Estimated Creatinine Clearance 84 ml/min; Glucose 94 mg/dl (70-99); Potassium 3.6 mmol/L (3.5-5.1); Sodium 139 mmol/L (135-145); eGFR > 60.00
[2024-07-17] MEDS: PROTONIX 40 MG PO (08:48)
[2024-07-17] MEDS: KCL 20 MEQ PO ×2 (08:48→19:58)
[2024-07-17] MEDS: CYMBALTA DELAYED RELEASE 60 MG PO ×2 (08:48→19:59)
[2024-07-17] MEDS: TYLENOL 650 MG PO ×3 (09:03→22:16)
--- NOTE | 2024-07-17 12:33 | W.PN.HOSP.TC ---
Today's Communication/Plan
-
Continue antibiotics
Add bowel regimen
Await surgical input
Assessment / Plan
Assessment / Plan
Gen-AAOx3, NAD
HEENT-NC, AT, anicteric, clear oral mm
Neck-supple
CV-reg, no M, +S1/S2
Lungs-clear B/L
Abd-soft, NT, ND
Ext-no edema
Musculoskeletal-no cyanosis, clubbing
Skin-warm and dry, large posterior scalp open wound, hematoma with drainage and surrounding cellulitis
Neuro-grossly non-focal
Psych-calm, cooperative
Posterior scalp skin and soft tissue infection -due to infected hematoma with drainage. No evidence of sepsis. Suspect patient was picking at her wound prior to admission which may have triggered the infection of the hematoma.
Continue IV antibiotics. Plavix on hold for potential incision and drainage, but general surgery currently recommends holding off.
Afebrile today, WBCs trending down. Cellulitis surrounding the wound looks improved today compared to yesterday. Drainage appears to be improving as well.
Due to complaints of ongoing scalp pain from the wound infection tramadol as needed added.
Acute diarrhea -unclear if due to adverse drug reaction versus other etiology. No diarrhea so far today. If diarrhea recurs, send stool studies.
Hypokalemia -possibly due to GI losses. Magnesium normal. Continue oral repletion. Potassium improving.
Ambulatory dysfunction -uses a cane. PT/OT recommend home health.
CAD -history of stents 2004. Plavix on hold due to hematoma. Resume as soon as possible.
History of hemorrhagic stroke 2002 -left hemiparesis.
Essential hypertension -stable.
Hyperlipidemia -on simvastatin.
Depression
Diverticulosis
Psoriasis
Full code
Anticipated Discharge: Within 24 hours
Subjective/Interval History
-
Date of Service: July 17, 2024
Patient seen and examined. Still with posterior scalp pain. Complaining of drainage.
Objective Data
-
Labs:
Laboratory Results
07/17/24
06:42
WBC 15.7 H
Hgb 11.1 L
Hct 32.3 L
Plt Count 226
Sodium 139
Potassium 3.6
Chloride 102
Carbon Dioxide 26
BUN 6 L
Creatinine 0.5 L
Glucose 94
Calcium 8.6
Vital Signs:
Vital Signs
Temp Pulse Resp BP Pulse Ox
97.9 F 73 18 105/50 95
07/17/24 08:01 07/17/24 08:01 07/17/24 08:01 07/17/24 08:01 07/17/24 08:01
I&O
07/16/24 07/17/24 07/18/24
06:59 06:59 06:59
Intake Total 560 / 560
Balance 560 / 560
Review of Systems
-
History Source: Patient
All other systems: Reviewed and negative
[2024-07-17] MEDS: MIRALAX 17 GRAMS PO (13:21)
--- NOTE | 2024-07-17 15:53 | W.PN.GS2 ---
Today's Communication / Plan
-
`
Assessment / Plan
-
Assessment: 73-year-old female with large posterior occipital scalp hematoma and superimposed cellulitis; possible infected hematoma component/abscess as well
Given degree of fluctuance and likelihood that this will spontaneously either rupture or decompress with expectant management discussed with patient option for surgical drainage versus continued expectant management with oral antibiotic therapy
alone.
After our discussions patient wishes to proceed with surgical management
Evacuation/drainage posterior scalp hematoma/fluid collection was reviewed in detail with the patient including the operative technique, alternative treatment options, benefits and potential risks particularly as a relates to bleeding and delayed
wound healing/infectious related complications.
Plan: Patient is added onto the OR schedule for 07/18/2024
Continue to hold Plavix given plan for surgery tomorrow
Continue current antibiotics
N.p.o. tomorrow for OR; IV fluids while n.p.o.
will type and screen with a.m. labs out of precaution
Subjective Data
-
Date of Service: July 17, 2024
Patient seen and examined
She offers no complaints other than discussing surgical treatment plan for her scalp collection/hematoma
Area remains painful and tender
Objective Data
-
Intake and Output
07/16/24 07/17/24 07/18/24
06:59 06:59 06:59
Intake Total 560 / 560
Balance 560 / 560
Intake:
Oral fluids 560 / 560
Other:
Number of approximated MODERATE 2 4
amounts of urine
Vital Signs
Temp Pulse Resp BP Pulse Ox
97.9 F 73 18 105/50 95
07/17/24 08:01 07/17/24 08:01 07/17/24 08:01 07/17/24 08:01 07/17/24 08:01
Lab Results
07/17/24 06:42
07/17/24 06:42
Calcium 8.6 mg/dl (8.4-10.2) 07/17/24 06:42
Magnesium 1.8 mg/dl (1.6-2.3) 07/15/24 05:37
Total Bilirubin 0.4 mg/dl (0.2-1.3) 07/14/24 21:31
AST 33 U/L (14-36) 07/14/24 21:31
ALT 33 U/L (0-35) 07/14/24 21:31
Alkaline Phosphatase 175 U/L (38-126) H 07/14/24 21:31
Total Protein 6.2 g/dl (6.3-8.2) L 07/14/24 21:31
Albumin 3.8 g/dl (3.5-5.0) 07/14/24 21:31
Physical Exam
-
NAD AAOx3
Large right posterior occipital area of fluctuance, faint erythema and surrounding ecchymosis/induration
Tenderness to touch but not warm no active drainage but scabbing/eschar likely noted around skin/hair
[2024-07-17 16:04] VITALS: BP 123/65; O2SAT 98
[2024-07-17 16:43] VITALS: BP 137/71
[2024-07-17] MEDS: LIPITOR 10 MG PO (17:30)
--- NOTE | 2024-07-17 18:45 | PTCARENOTE ---
Addendum entered by Katrina Mas RN 07/17/24 18:48:
patient medicated with PRN Tylenol for c/o of posterior head pain with good relief, posterior head remains painful and tender. area with fluctuance, erythema, tenderness,ecchymosis, induration with scabbing/eschar?, psoriasis patch imbedded in hair.
tolerating diet, sitting oob in chair most of day, vss, will continue to monitor.
Original Note:
patient medicated with PRN Tylenol for c/o of posterior head pain with good relief, posterior head remains painful and tender. area with fluctuance, erythema, tenderness,ecchymosis, induration with scabbing/eschar?, psoriasis patch imbedded in hair.
tolerating diet, sitting oob most of day, vss, will continue to monitor.
[2024-07-17] MEDS: ULTRAM 25 MG PO (20:02)
[2024-07-17] MEDS: DESYREL 100 MG PO (21:31)
[2024-07-17 23:27] VITALS: BP 135/58
[2024-07-18] VITALS (13 sets, daily range): BP systolic 120–142; BP diastolic 63–80; BMI 26.4
[2024-07-18 06:30] LABS: % Basophils 0.4 % (0-2); % Eosinophils 1.4 % (0-6); % Immature Granulocytes 1.8 % (0-0.5); % Monocytes 5.7 % (1.7-9.3); % Neutrophils 77.7 % (42.2-75.2); Absolute Basophils 0.1 10^3/uL (0-0.2); Absolute Eosinophils 0.2 10^3/uL (0-0.7); Absolute Immature Granulocytes 0.3 10^3/uL (0-0.05); Absolute Lymphocytes 2.1 10^3/uL (1.2-3.4); Absolute Monocytes 0.9 10^3/uL (0.1-0.6); Absolute Neutrophils 12.3 10^3/uL (1.4-6.5); Hematocrit 33.1 % (37.0-47.0); Hemoglobin 11.7 g/dL (12.0-16.0); Mean Corp Hgb Conc. 35.3 g/dL (33.0-37.0); Mean Corpuscular Hgb 31.8 pg (27.0-31.0); Mean Corpuscular Volume 89.9 fL (81.0-99.0); Nucleated Red Blood Cells % 0 %; Platelet Count 209 10^3/uL (130-400); Red Blood Cell Count 3.68 10^6/uL (4.20-5.40); Red Cell Dist. Width 12.5 % (11.5-14.5); White Blood Cell Count 15.8 10^3/uL (4.8-10.8)
[2024-07-18] MEDS: ANCEF 10 IV ×3 (09:13→23:51)
[2024-07-18] MEDS: NSS 1000 IV (09:15)
[2024-07-18] MEDS: TYLENOL 650 MG PO (09:16)
[2024-07-18] MEDS: PROTONIX 40 MG PO (09:24)
[2024-07-18] MEDS: CYMBALTA DELAYED RELEASE 60 MG PO ×2 (09:24→22:26)
[2024-07-18] MEDS: KCL 20 MEQ PO ×2 (09:25→20:20)
[2024-07-18] MEDS: MIRALAX PO (09:25)
--- NOTE | 2024-07-18 11:15 | PTCARENOTE ---
Report given to MELISSA Aguilar. Pt sent to OR.
--- NOTE | 2024-07-18 11:50 | W.PN.HOSP.TC ---
Today's Communication/Plan
-
OR today
Assessment / Plan
Assessment / Plan
Gen-AAOx3, NAD
HEENT-NC, AT, anicteric, clear oral mm
Neck-supple
CV-reg, no M, +S1/S2
Lungs-clear B/L
Abd-soft, NT, ND
Ext-no edema
Musculoskeletal-no cyanosis, clubbing
Skin-warm and dry, large posterior scalp open wound, hematoma with drainage and surrounding cellulitis
Neuro-grossly non-focal
Psych-calm, cooperative
Posterior scalp skin and soft tissue infection -due to infected hematoma with drainage. No evidence of sepsis. Suspect patient was picking at her wound prior to admission which may have triggered the infection of the hematoma.
WBC count stable at 15.8k.
Continue IV antibiotics. Plavix on hold.
Gen surgery plans on drainage of hematoma/fluid collection today.
Acute diarrhea -resolved.
Hypokalemia -possibly due to GI losses. Magnesium normal. Continue oral repletion. Potassium improving.
Ambulatory dysfunction -uses a cane. PT/OT recommend home health.
CAD -history of stents 2004. Plavix on hold due to hematoma. Resume as soon as possible.
History of hemorrhagic stroke 2002 -left hemiparesis.
Essential hypertension -stable.
Hyperlipidemia -on simvastatin.
Depression
Diverticulosis
Psoriasis
Full code
Anticipated Discharge: 24 - 48 hours
Subjective/Interval History
-
Date of Service: July 18, 2024
Patient seen/examined. Still with pain in posterior scalp.
Objective Data
-
Labs:
Laboratory Results
07/18/24
05:53
WBC 15.8 H
Hgb 11.7 L
Hct 33.1 L
Plt Count 209
Vital Signs:
Vital Signs
Temp Pulse Resp BP Pulse Ox
98.4 F 75 16 132/77 92
07/18/24 07:05 07/18/24 07:05 07/18/24 07:05 07/18/24 07:05 07/18/24 07:05
I&O
07/17/24 07/18/24 07/19/24
06:59 06:59 06:59
Intake Total 560 / 560 480 / 480
Balance 560 / 560 480 / 480
Review of Systems
-
History Source: Patient
All other systems: Reviewed and negative
--- NOTE | 2024-07-18 12:27 | W.SUR.PREOP ---
Pre-Operative Surgical Note
-
I have examined this patient prior to the performance of the scheduled procedure.
The patient's condition is unchanged from the time of the current History and
Physical and the patient is able to undergo the scheduled procedure.
--- NOTE | 2024-07-18 14:26 | W.IMMPOSTOP ---
Addendum entered and electronically signed by Darryn Sam MD 07/18/24 14:45:
#[id number]
Original Note:
Surgical Immed Post Op Note
-
Primary Surgeon: Cecy
Assisting Surgeon: Linette Fletcher PA-C
Pre-op Diagnosis: Infected scalp hematoma with cellulitis
Post-op Diagnosis: Infected scalp hematoma/abscess
Procedure Performed: Evacuation and sharp excisional debridement large scalp abscess/hematoma
Anesthesia Type: General LMA +1% lidocaine with epinephrine
Specimen / Cultures: None/abscess cultures
Estimated Blood Loss: 44 mL
Complications: None immediate
Operative Findings: Large degloving scalp hematoma essentially completely occupied by purulent fluid. Overlying dermal eschar excised and abscess cavity fully evacuated. Open wound measures 10.5 cm x 4 cm and 0.5 cm deep at the end of the
procedure. Packed open scalp wound with 2 Betadine 4 x 4's. Scalp dermis approximated overlying packing to keep it in place and to assist with postoperative hemostasis.
Plan: Please continue to hold clopidogrel for hemostasis
Current packing will stay in place through the weekend
Patient will return to the OR on Sunday for wound washout
Updated patient's via phone call postoperatively
[2024-07-18] MEDS: SUBLIMAZE 25 MCG IV (14:48)
--- NOTE | 2024-07-18 14:56 | PHA.VAN.IN ---
Assessment
- Assessment
Renal Function: Appears similar to baseline
Concomitant Antimicrobials: ANCEF
- Previous Dosing Experience
Previous Regimen: NONE
AUC Dosing Plan
- Dosing Variables
Dosing Weight (kg): 76.3
Dosing CrCl (ml/min): 84
Vd coefficient (L/kg): 0.7
- Empiric Dosing
Initial / Loading Dose: 2GM
Maintenance Regimen: 1GM IV Q12H
Estimated AUC (mcg*h/mL): 524
Estimated Peak (mcg*h/mL): 31.8
Estimated Trough (mcg/ml): 14.1
Estimated Half Life (H): 9.3
Pharmacokinetics Vancomycin I
- -
Patient Age: 73
Patient Sex: Female
Vancomycin Day #: 1
Indication: Skin And Soft Tissue (INFECTED HEMATOMA)
Requesting Provider: KAMLA
Height / Weight:
Height 5 ft 7 in
Actual Weight 76.317 kg
- Vital Signs / Lab Results
Temp Pulse Resp BP Pulse Ox
97.2 F 84 16 132/78 100
07/18/24 14:20 07/18/24 14:30 07/18/24 14:30 07/18/24 14:30 07/18/24 14:30
Lab Results - Hematology
07/16/24 07/17/24 07/18/24
06:16 06:42 05:53
WBC 17.8 H 15.7 H 15.8 H
Lab Results - Chemistry
07/16/24 07/17/24
06:16 06:42
BUN 5 L 6 L
Creatinine 0.5 L 0.5 L
Estimated Creat Clear 84 84
Microbiology Results
07/15/24 08:27 MRSA Screen - Final
Nose Staph aureus MRSA
[2024-07-18] MEDS: VANCOCIN 540 MG IV (15:21)
--- NOTE | 2024-07-18 16:10 | CON.ID ---
Consultation
-
Date/Time Consultation Requested: 07/18/2024 1432
Date/Time Consultation Performed: 07/18/2024 1600
Requesting Provider: Dr. Davis
Performing Provider: Dr. Maldonado
Reason for Consultation: Scalp abscess
Chief Complaint / Past History
History of Present Illness
Catrachita Muniz is a 73-year-old female with a significant past medical history of CAD, CVA being evaluated at the request of Dr. Davis in regards to a suspected scalp abscess. History is obtained from chart review, along with patient interview.
The patient reports that she had the top of her head approximately 2 weeks ago on a kitchen cabinet. She reports that there was no bleeding immediately, but after some time she began to develop some oozing. She additionally began to develop more
scalp pain and ultimately presented to the emergency room for further evaluation. Prior to admission she denied any fevers but did have some nausea in the week after striking her head.
Hospital course has been significant for the diagnosis of cellulitis, and the patient was placed on empiric antibiotics. Today, the patient was taken to the OR for evacuation of suspected hematoma, with the finding of purulent fluid. Infectious
Diseases is now asked to comment on further antimicrobial therapy.
Past History
Additional Past Medical History:
CAD
CVA (2002, with left residual)
HTN
Dyslipidemia
Diverticulitis
Additional Past Surgical History:
PTCA with stenting
Cholecystectomy
Laminectomy
Bilateral rotator cuff surgery
Allergy History:
gabapentin [From Neurontin] Allergy (Verified 07/14/24 19:11)
LEG SWELLING
hydromorphone HCl [From Dilaudid] Allergy (Verified 07/14/24 19:11)
ITCH ALL OVER
Iodinated Contrast Media Allergy (Verified 07/14/24 19:11)
Anaphylaxis
Current Antibiotics:
Cefazolin
Vancomycin
Social History
Tobacco: Non-Smoker
Alcohol: None
Drug: None
Personal: Single
Living: With Family
Employment: Employed
Family History
Family History: Not Pertinent
Review of Systems
Vital Signs
Temp Pulse Resp BP Pulse Ox
98 F 85 17 125/78 94
07/18/24 15:58 07/18/24 15:58 07/18/24 15:58 07/18/24 15:58 07/18/24 15:58
Physical Exam
Physical Exam
Constitutional: No Acute Distress, Comfortable and Non-toxic
Head: Other (Dressing around head. Packing in occipital region.)
Eyes: No Conjunctival Hemorrhage and Sclera Anicteric
Oral: No Thrush
Cardiovascular: Regular Rate and S1/S2; Negative S3/S4
Pulmonary: Clear; Negative Wheezes, Rales or Rhonchi
Gastrointestinal: Soft, Non Tender and Non Distended
Skin: Warm and Dry; Negative Rash or Jaundice
Neurological: Awake and Alert
Psychological: Calm
Lab / Diagnostic Study Results
07/18/24 05:53
07/17/24 06:42
Abs Immat Gran (auto) 0.3 10^3/uL (0-0.05) H 07/18/24 05:53
Absolute Neuts (auto) 12.3 10^3/uL (1.4-6.5) H 07/18/24 05:53
Absolute Lymphs (auto) 2.1 10^3/uL (1.2-3.4) 07/18/24 05:53
Absolute Monos (auto) 0.9 10^3/uL (0.1-0.6) H 07/18/24 05:53
Absolute Basos (auto) 0.1 10^3/uL (0-0.2) 07/18/24 05:53
Immature Gran % 1.8 % (0-0.5) H 07/18/24 05:53
Neutrophils % 77.7 % (42.2-75.2) H 07/18/24 05:53
Lymphocytes % 13.0 % (20.5-51.1) L 07/18/24 05:53
Monocytes % 5.7 % (1.7-9.3) 07/18/24 05:53
Eosinophils % 1.4 % (0-6) 07/18/24 05:53
Basophils % 0.4 % (0-2) 07/18/24 05:53
Microbiology Results
Micro:
07/15/24 08:27 MRSA Screen - Final
Nose Staph aureus MRSA
Imaging:
07/14/2024 CT head without contrast: No acute intracranial abnormality noted. No evidence of recent infarction, intracranial hemorrhage or extra-axial fluid collection. Please see full dictation for additional detail.
Assessment / Plan
Posterior scalp abscess
- S/p evacuation
Hx recent local trauma to scalp.
Leukocytosis
CAD
Hx CVA (2002, with left residual)
HTN
Dyslipidemia
Diverticulitis
Recommendations:
Continue with empiric cefazolin and vancomycin.
Follow Vanco levels closely.
Cultures from drainage have been obtained; will await further results to guide further antimicrobial selection and potential de-escalation.
Follow white count and temperature curve.
Local care to the wound.
[2024-07-18] MEDS: ASPIR LOW (ENTERIC COATED) 81 MG PO (16:21)
--- NOTE | 2024-07-18 17:00 | PTCARENOTE ---
Pt received in bed from PACU. VSS. On 2L NC sating 95%, reports pain tolerable at 4/10 posterior head. Bandage around head intact, c/d/i, no drainage noted. Tolerating diet, IVFs capped. Will continue to monitor.
[2024-07-18] MEDS: LIPITOR 10 MG PO (17:11)
[2024-07-18] MEDS: ULTRAM 50 MG PO (20:20)
[2024-07-18] MEDS: DESYREL 100 MG PO (22:26)
[2024-07-19 03:16] VITALS: BP 128/60
[2024-07-19] MEDS: VANCOCIN 200 IV ×2 (05:28→17:37)
[2024-07-19 06:16] LABS: % Basophils 0.3 % (0-2); % Immature Granulocytes 1.9 % (0-0.5); % Lymphocytes 10.4 % (20.5-51.1); % Monocytes 3.3 % (1.7-9.3); % Neutrophils 84.1 % (42.2-75.2); Absolute Basophils 0.1 10^3/uL (0-0.2); Absolute Immature Granulocytes 0.3 10^3/uL (0-0.05); Absolute Lymphocytes 1.6 10^3/uL (1.2-3.4); Absolute Monocytes 0.5 10^3/uL (0.1-0.6); Absolute Neutrophils 12.5 10^3/uL (1.4-6.5); Hemoglobin 11.1 g/dL (12.0-16.0); Mean Corp Hgb Conc. 34.7 g/dL (33.0-37.0); Mean Corpuscular Hgb 31.4 pg (27.0-31.0); Mean Corpuscular Volume 90.4 fL (81.0-99.0); Mean Platelet Volume 8.2 fL (7.4-10.4); Nucleated Red Blood Cells % 0 %; Platelet Count 224 10^3/uL (130-400); Red Blood Cell Count 3.54 10^6/uL (4.20-5.40); Red Cell Dist. Width 12.3 % (11.5-14.5); White Blood Cell Count 14.9 10^3/uL (4.8-10.8)
[2024-07-19 07:00] VITALS: BP 113/61
[2024-07-19] MEDS: ASPIR LOW (ENTERIC COATED) 81 MG PO (07:40)
[2024-07-19] MEDS: KCL 20 MEQ PO ×2 (07:40→19:48)
[2024-07-19] MEDS: PROTONIX 40 MG PO (07:40)
[2024-07-19] MEDS: CYMBALTA DELAYED RELEASE 60 MG PO ×2 (07:40→19:48)
[2024-07-19] MEDS: ANCEF 10 IV ×3 (07:41→23:32)
[2024-07-19] MEDS: MIRALAX 17 GRAMS PO (07:41)
[2024-07-19] MEDS: MORPHINE SULFATE 2 MG IV ×3 (07:48→22:21)
[2024-07-19 08:00] VITALS: BMI 26.2
--- NOTE | 2024-07-19 08:01 | PHA.VAN.FU ---
Vancomycin Assessment / Plan
- Assessment
Renal Function: No New Labs Today
WBC's are: Trending Down
In the past 24 hrs, patient has been: Afebrile
Concomitant Antimicrobials: ancef
- Dosing Plan
Continue: 1000mg q12h
- Monitoring Plan
Peak Level: 07/20 @2030
Trough Level: 07/21 @0530
- Follow Up
Pharmacy will continue to follow.
Vancomycin Follow UP
- -
Patient Age: 73
Patient Sex: Female
Vancomycin Day #: 2
Indication: Skin And Soft Tissue (INFECTED HEMATOMA)
Requesting Provider: KAMLA
Height / Weight:
Height 5 ft 7 in
Actual Weight 76.317 kg
- Vital Signs / Lab Results
Temp Pulse Resp BP Pulse Ox
98.2 F 67 14 128/60 96
07/19/24 03:16 07/19/24 03:16 07/19/24 03:16 07/19/24 03:16 07/19/24 03:16
Lab Results - Hematology
07/17/24 07/18/24 07/19/24
06:42 05:53 06:00
WBC 15.7 H 15.8 H 14.9 H
Lab Results - Chemistry
07/17/24
06:42
BUN 6 L
Creatinine 0.5 L
Estimated Creat Clear 84
Microbiology Results
07/15/24 08:27 MRSA Screen - Final
Nose Staph aureus MRSA
[2024-07-19 11:00] VITALS: BP 120/59
--- NOTE | 2024-07-19 11:36 | W.PN.GS2 ---
Today's Communication / Plan
-
plan for OR on 07/21
continue head bandage
Assessment / Plan
-
Assessment: 73-year-old female with large posterior occipital scalp hematoma and superimposed cellulitis; possible infected hematoma component/abscess as well
Given degree of fluctuance and likelihood that this will spontaneously either rupture or decompress with expectant management discussed with patient option for surgical drainage versus continued expectant management with oral antibiotic therapy
alone.
After our discussions patient wishes to proceed with surgical management
Evacuation/drainage posterior scalp hematoma/fluid collection was reviewed in detail with the patient including the operative technique, alternative treatment options, benefits and potential risks particularly as a relates to bleeding and delayed
wound healing/infectious related complications.
Plan: Patient is on the OR schedule for 07/21/2024
Continue to hold Plavix given plan for surgery on Sunday
Continue current antibiotics
Subjective Data
-
Date of Service: July 19, 2024
Patient states she feels 'okay'. She has no complaints. There has not been any bleeding on her head bandage.
Objective Data
-
Intake and Output
07/18/24 07/19/24 07/20/24
06:59 06:59 06:59
Intake Total 480 / 480 194 / 1946 200 / 200
Balance 480 / 480 1946 / 1946 200 / 200
Intake:
Oral fluids 480 / 480 521 / 521
IV fluids (Total) 1125 / 1125
norm 125 / 125
IV piggybacks 300 / 300 200 / 200
Other:
Number of approximated SMALL 2
amounts of urine
Number of approximated MODERATE 3 3
amounts of urine
Vital Signs
Temp Pulse Resp BP Pulse Ox
97.8 F 77 16 113/61 98
07/19/24 07:00 07/19/24 07:00 07/19/24 07:00 07/19/24 07:00 07/19/24 07:00
Lab Results
07/19/24 06:00
07/17/24 06:42
Calcium 8.6 mg/dl (8.4-10.2) 07/17/24 06:42
Magnesium 1.8 mg/dl (1.6-2.3) 07/15/24 05:37
Total Bilirubin 0.4 mg/dl (0.2-1.3) 07/14/24 21:31
AST 33 U/L (14-36) 07/14/24 21:31
ALT 33 U/L (0-35) 07/14/24 21:31
Alkaline Phosphatase 175 U/L (38-126) H 07/14/24 21:31
Total Protein 6.2 g/dl (6.3-8.2) L 07/14/24 21:31
Albumin 3.8 g/dl (3.5-5.0) 07/14/24 21:31
Physical Exam
-
NAD AAOx3
Head bandage in place, no blood noted on bandage. Bandage left in place.
--- NOTE | 2024-07-19 13:40 | W.PN.ID1 ---
Date of Service
Date of Service: July 19, 2024
Today's Communication
Continue antibiotics.
Assessment / Plan
Posterior scalp abscess
- S/p evacuation
Hx recent local trauma to scalp.
Leukocytosis
CAD
Hx CVA (2002, with left residual)
HTN
Dyslipidemia
Diverticulitis
Recommendations:
Continue with empiric cefazolin and vancomycin.
Follow Vanco levels closely.
Cultures from drainage have been obtained; will await further results to guide further antimicrobial selection and potential de-escalation.
Follow white count and temperature curve.
Local care to the wound.
Chief Complaint
-: Other (abscess)
Subjective / Review of Systems
Review of Systems: No Fever and No Chills
Vital Signs / Physical Exam
Vital Signs
Vital Signs
Temp Pulse Resp BP Pulse Ox
98.2 F 83 18 120/59 96
07/19/24 11:00 07/19/24 11:00 07/19/24 11:00 07/19/24 11:00 07/19/24 11:00
Physical Exam
Constitutional: No Acute Distress, Comfortable and Non-toxic
Head: Other (Dressing in place to posterior scalp)
Cardiovascular: S1/S2; Negative S3/S4
Pulmonary: Non Labored
Neurological: Awake and Alert
Psychological: Calm
Objective Data
Lab Data
Lab Results
07/19/24 06:00
07/17/24 06:42
Estimated Creat Clear 84 ml/min 07/17/24 06:42
Total Bilirubin 0.4 mg/dl (0.2-1.3) 07/14/24 21:31
AST 33 U/L (14-36) 07/14/24 21:31
ALT 33 U/L (0-35) 07/14/24 21:31
Alkaline Phosphatase 175 U/L (38-126) H 07/14/24 21:31
Most recent labs reviewed.
Micro Results:
07/18/24 13:20 Anaerobic Culture - Pending
Scalp
07/18/24 13:37 Wound Culture - Pending
Scalp Gram Stain - Pending
07/15/24 08:27 MRSA Screen - Final
Nose Staph aureus MRSA
Imaging:
07/14/2024 CT head without contrast: No acute intracranial abnormality noted. No evidence of recent infarction, intracranial hemorrhage or extra-axial fluid collection. Please see full dictation for additional detail.
--- NOTE | 2024-07-19 14:04 | W.PN.HOSP.TC ---
Today's Communication/Plan
-
Continue antibiotics
Await cultures
Assessment / Plan
Assessment / Plan
Gen-AAOx3, NAD
HEENT-NC, AT, anicteric, clear oral mm
Neck-supple
CV-reg, no M, +S1/S2
Lungs-clear B/L
Abd-soft, NT, ND
Ext-no edema
Musculoskeletal-no cyanosis, clubbing
Skin-warm and dry, large posterior scalp open wound, hematoma with drainage and surrounding cellulitis
Neuro-grossly non-focal
Psych-calm, cooperative
Posterior scalp abscess/cellulitis - due to infected hematoma with drainage. No evidence of sepsis. Suspect patient was picking at her wound prior to admission which may have triggered the infection of the hematoma. Underwent successful drainage
of fluid collection 07/18 in the OR with copious purulent material removed.
WBC count trending down, 14.9k. Currently on cefazolin/vancomycin IV pending fluid culture from the OR. Appreciate ID input.
Plavix on hold.
Gen surgery plans on further incision and drainage on Sunday.
Acute diarrhea -resolved.
Hypokalemia -possibly due to GI losses. Magnesium normal. Continue oral repletion. Potassium improving.
Ambulatory dysfunction -uses a cane. PT/OT recommend home health.
CAD -history of stents 2004. Plavix on hold due to hematoma. Resume as soon as possible.
History of hemorrhagic stroke 2002 -left hemiparesis.
Essential hypertension -stable.
Hyperlipidemia -on simvastatin.
Depression
Diverticulosis
Psoriasis
Full code
Family updated at the bedside.
Anticipated Discharge: > 48 hours
Subjective/Interval History
-
Date of Service: July 19, 2024
Patient seen and examined. Feeling much better, less scalp pain.
Objective Data
-
Labs:
Laboratory Results
07/19/24
06:00
WBC 14.9 H
Hgb 11.1 L
Hct 32.0 L
Plt Count 224
Vital Signs:
Vital Signs
Temp Pulse Resp BP Pulse Ox
98.2 F 83 18 120/59 96
07/19/24 11:00 07/19/24 11:00 07/19/24 11:00 07/19/24 11:00 07/19/24 11:00
I&O
07/18/24 07/19/24 07/20/24
06:59 06:59 06:59
Intake Total 480 / 480 194 / 194 200 / 200
Balance 480 / 480 194 / 1946 200 / 200
Review of Systems
-
History Source: Patient
All other systems: Reviewed and negative
[2024-07-19 15:00] VITALS: BP 118/62
[2024-07-19] MEDS: LIPITOR 10 MG PO (17:17)
[2024-07-19] MEDS: DESYREL 100 MG PO (22:11)
[2024-07-19 23:10] VITALS: BP 114/62
[2024-07-20] MEDS: ULTRAM 50 MG PO (01:57)
[2024-07-20] MEDS: VANCOCIN 200 IV ×2 (05:24→17:18)
[2024-07-20] MEDS: MORPHINE SULFATE 2 MG IV ×3 (05:24→20:01)
[2024-07-20 06:00] VITALS: BMI 26.2
[2024-07-20 06:37] LABS: % Basophils 0.4 % (0-2); % Eosinophils 1.7 % (0-6); % Immature Granulocytes 2.3 % (0-0.5); % Monocytes 5.8 % (1.7-9.3); % Neutrophils 60.8 % (42.2-75.2); Absolute Basophils 0.1 10^3/uL (0-0.2); Absolute Eosinophils 0.2 10^3/uL (0-0.7); Absolute Immature Granulocytes 0.3 10^3/uL (0-0.05); Absolute Lymphocytes 3.3 10^3/uL (1.2-3.4); Absolute Monocytes 0.7 10^3/uL (0.1-0.6); Absolute Neutrophils 6.8 10^3/uL (1.4-6.5); Hematocrit 32.4 % (37.0-47.0); Hemoglobin 10.9 g/dL (12.0-16.0); Mean Corp Hgb Conc. 33.6 g/dL (33.0-37.0); Mean Corpuscular Volume 89.3 fL (81.0-99.0); Mean Platelet Volume 8.4 fL (7.4-10.4); Nucleated Red Blood Cells % 0 %; Platelet Count 218 10^3/uL (130-400); Red Blood Cell Count 3.63 10^6/uL (4.20-5.40); Red Cell Dist. Width 12.5 % (11.5-14.5); White Blood Cell Count 11.2 10^3/uL (4.8-10.8)
[2024-07-20 06:58] LABS: Blood Urea Nitrogen 13 mg/dl (7-17); Carbon Dioxide 30 mmol/L (22-30); Chloride 102 mmol/L (98-107); Estimated Creatinine Clearance 84 ml/min; Glucose 107 mg/dl (70-99); Potassium 4.3 mmol/L (3.5-5.1); Sodium 139 mmol/L (135-145); eGFR > 60.00
[2024-07-20 08:03] VITALS: BP 109/65
[2024-07-20] MEDS: ANCEF 10 IV ×2 (08:27→16:15)
[2024-07-20] MEDS: CYMBALTA DELAYED RELEASE 60 MG PO ×2 (08:27→20:00)
[2024-07-20] MEDS: MIRALAX PO (08:28)
[2024-07-20] MEDS: ASPIR LOW (ENTERIC COATED) 81 MG PO (08:28)
[2024-07-20] MEDS: PROTONIX 40 MG PO (08:28)
[2024-07-20] MEDS: KCL 20 MEQ PO ×2 (08:28→20:00)
--- NOTE | 2024-07-20 08:35 | PHA.VAN.FU ---
Vancomycin Assessment / Plan
- Assessment
Renal Function: Stable
WBC's are: Trending Down
In the past 24 hrs, patient has been: Afebrile
Concomitant Antimicrobials: ANCEF
- Dosing Plan
Continue: 1000MG Q12H
- Monitoring Plan
Peak Level: 07/20 2030
Trough Level: 07/21 0530
- Follow Up
Pharmacy will continue to follow.
Vancomycin Follow UP
- -
Patient Age: 73
Patient Sex: Female
Vancomycin Day #: 3
Indication: Skin And Soft Tissue (INFECTED HEMATOMA)
Requesting Provider: KAMLA
Height / Weight:
Height 5 ft 7 in
Actual Weight 75.75 kg
- Vital Signs / Lab Results
Temp Pulse Resp BP Pulse Ox
98 F 72 16 109/65 95
07/20/24 08:03 07/20/24 08:03 07/20/24 08:03 07/20/24 08:03 07/20/24 08:03
Lab Results - Hematology
07/18/24 07/19/24 07/20/24
05:53 06:00 06:11
WBC 15.8 H 14.9 H 11.2 H
Lab Results - Chemistry
07/20/24
06:11
BUN 13
Creatinine 0.6
Estimated Creat Clear 84
Microbiology Results
07/18/24 13:37 Gram Stain - Preliminary
Scalp
[2024-07-20] MEDS: DULCOLAX 10 MG PO (10:46)
--- NOTE | 2024-07-20 13:01 | W.PN.HOSP.TC ---
Today's Communication/Plan
-
N.p.o. after midnight
Assessment / Plan
Assessment / Plan
Gen-AAOx3, NAD
HEENT-NC, AT, anicteric, clear oral mm
Neck-supple
CV-reg, no M, +S1/S2
Lungs-clear B/L
Abd-soft, NT, ND
Ext-no edema
Musculoskeletal-no cyanosis, clubbing
Skin-warm and dry, large posterior scalp open wound, hematoma with drainage and surrounding cellulitis
Neuro-grossly non-focal
Psych-calm, cooperative
Posterior scalp abscess/cellulitis - due to infected hematoma with drainage. No evidence of sepsis. Suspect patient was picking at her wound prior to admission which may have triggered the infection of the hematoma. Underwent successful drainage
of fluid collection 07/18 in the OR with copious purulent material removed.
WBC count trending down.
Cultures from the OR show Staphylococcus aureus, sensitivity pending. Currently on cefazolin and vancomycin.
Plavix on hold.
Gen surgery plans on further incision and drainage on Sunday.
Acute diarrhea -resolved.
Hypokalemia -possibly due to GI losses. Magnesium normal. Continue oral repletion. Potassium improving.
Ambulatory dysfunction -uses a cane. PT/OT recommend home health.
CAD -history of stents 2004. Plavix on hold due to hematoma. Resume when okay with surgical service.
History of hemorrhagic stroke 2002 -left hemiparesis.
Essential hypertension -stable.
Hyperlipidemia -on simvastatin.
Depression
Diverticulosis
Psoriasis
Full code
Anticipated Discharge: 24 - 48 hours
Subjective/Interval History
-
Date of Service: July 20, 2024
Patient seen and examined. Complaining of ill fitting dressing on her scalp.
Objective Data
-
Labs:
Laboratory Results
07/20/24
06:11
WBC 11.2 H
Hgb 10.9 L
Hct 32.4 L
Plt Count 218
Sodium 139
Potassium 4.3
Chloride 102
Carbon Dioxide 30
BUN 13
Creatinine 0.6
Glucose 107 H
Calcium 9.0
Vital Signs:
Vital Signs
Temp Pulse Resp BP Pulse Ox
98 F 72 16 109/65 95
07/20/24 08:03 07/20/24 08:03 07/20/24 08:03 07/20/24 08:03 07/20/24 08:03
I&O
07/19/24 07/20/24 07/21/24
06:59 06:59 06:59
Intake Total 1945 3100 / 3100
Balance 1945 3100 / 3100
Review of Systems
-
History Source: Patient
All other systems: Reviewed and negative
[2024-07-20 13:40] VITALS: BP 146/67; PULSE 76; O2SAT 98
[2024-07-20 15:51] VITALS: BP 146/67
[2024-07-20] MEDS: MIRALAX 17 GRAMS PO (16:15)
[2024-07-20] MEDS: LIPITOR 10 MG PO (17:18)
[2024-07-20] MEDS: COLACE 100 MG PO (20:00)
[2024-07-20] MEDS: DESYREL 100 MG PO (22:56)
[2024-07-20] MEDS: TYLENOL 650 MG PO (23:02)
[2024-07-20 23:15] VITALS: BP 119/61
[2024-07-20 23:32] LABS: Vancomycin Peak 20.1 ug/ml (18-26)
[2024-07-21] VITALS (16 sets, daily range): BP systolic 5–134; BP diastolic 50–80; BMI 25.9
[2024-07-21] MEDS: ANCEF 10 IV ×3 (00:08→23:01)
[2024-07-21] MEDS: VANCOCIN 200 IV (06:12)
[2024-07-21 06:29] LABS: % Basophils 0.7 % (0-2); % Eosinophils 2.6 % (0-6); % Immature Granulocytes 2.8 % (0-0.5); % Lymphocytes 24.2 % (20.5-51.1); % Monocytes 7.7 % (1.7-9.3); Absolute Basophils 0.1 10^3/uL (0-0.2); Absolute Eosinophils 0.3 10^3/uL (0-0.7); Absolute Immature Granulocytes 0.3 10^3/uL (0-0.05); Absolute Lymphocytes 2.6 10^3/uL (1.2-3.4); Absolute Monocytes 0.8 10^3/uL (0.1-0.6); Absolute Neutrophils 6.5 10^3/uL (1.4-6.5); Hematocrit 37.5 % (37.0-47.0); Hemoglobin 12.7 g/dL (12.0-16.0); Mean Corp Hgb Conc. 33.9 g/dL (33.0-37.0); Mean Corpuscular Hgb 29.9 pg (27.0-31.0); Mean Corpuscular Volume 88.2 fL (81.0-99.0); Mean Platelet Volume 8.4 fL (7.4-10.4); Nucleated Red Blood Cells % 0 %; Platelet Count 255 10^3/uL (130-400); Red Blood Cell Count 4.25 10^6/uL (4.20-5.40); Red Cell Dist. Width 12.3 % (11.5-14.5); White Blood Cell Count 10.5 10^3/uL (4.8-10.8)
[2024-07-21 06:41] LABS: Vancomycin Trough 13.7 ug/ml (5-20)
--- NOTE | 2024-07-21 09:21 | PHA.VAN.FU ---
Vancomycin Assessment / Plan
- Assessment
Renal Function: Stable
WBC's are: WNL
In the past 24 hrs, patient has been: Afebrile
Concomitant Antimicrobials: cefazolin
- Assessment - Trough Based Monitoring
Trough Value: 13.7
Level Today was: Appropriate
Level Comments: drawn ~12.5H after 4th maintenance dose
Peak was drawn > 3H after end of previous infusion and cannot be used to accurately calculate AUC or half-life
- Dosing Plan
Continue: Vanc 1000mg Q12H
- Monitoring Plan
No level(s) ordered at this time: consider repeat levels in next few days
- Follow Up
Pharmacy will continue to follow.
Vancomycin Follow UP
- -
Patient Age: 73
Patient Sex: Female
Vancomycin Day #: 4
Indication: Skin And Soft Tissue
Requesting Provider: Dr. Davis / Erica
Pertinent Antimicrobial Allergies:
no pertinent antibiotic allergies
Height / Weight:
Height 5 ft 7 in
Actual Weight 75.07 kg
- Vital Signs / Lab Results
Temp Pulse Resp BP Pulse Ox
98.1 F 71 16 111/70 98
07/21/24 07:38 07/21/24 07:38 07/21/24 07:38 07/21/24 07:38 07/21/24 07:38
Lab Results - Hematology
07/19/24 07/20/24 07/21/24
06:00 06:11 06:06
WBC 14.9 H 11.2 H 10.5
Lab Results - Chemistry
07/20/24
06:11
BUN 13
Creatinine 0.6
Estimated Creat Clear 84
Microbiology Results
07/18/24 13:37 Wound Culture - Preliminary
Scalp S aureus-Methicillin Sensitive
Gram Stain - Preliminary
07/18/24 13:20 Anaerobic Culture - Preliminary
Scalp Culture pending. Anaerobic cultures are examined after 3
days incubation. Additional information to follow.
Therapeutic Drug Monitoring
Vancomycin Peak 20.1 ug/ml (18-26) 07/20/24 23:10
Vancomycin Trough 13.7 ug/ml (5-20) 07/21/24 06:06
--- NOTE | 2024-07-21 09:57 | W.PN.HOSP.TC ---
Today's Communication/Plan
-
IV antibiotics. OR today.
Assessment / Plan
Assessment / Plan
Gen-AAOx3, NAD
HEENT-NC, AT, anicteric, clear oral mm
Neck-supple
CV-reg, no M, +S1/S2
Lungs-clear B/L
Abd-soft, NT, ND
Ext-no edema
Musculoskeletal-no cyanosis, clubbing
Skin-warm and dry, large posterior scalp open wound, hematoma with drainage and surrounding cellulitis
Neuro-grossly non-focal
Psych-calm, cooperative
A/P:
Posterior scalp abscess/cellulitis - due to infected hematoma with drainage. No evidence of sepsis. Suspect patient was picking at her wound prior to admission which may have triggered the infection of the hematoma. Underwent successful drainage
of fluid collection 07/18 in the OR with copious purulent material removed.
WBC count trending down. Today WBC 10.5
Cultures from the OR show MSSA. MRSA colonizer. Currently on cefazolin and vancomycin. Might be able to stop vancomycin but await for final report.
Plavix on hold.
Gen surgery plans on further incision and drainage today on Sunday. Will start on gentle IV fluid. Okay to take IV pain medications as needed.
Acute diarrhea -resolved.
Hypokalemia -possibly due to GI losses. Magnesium normal. Continue oral repletion. Potassium improved.
Ambulatory dysfunction -uses a cane. PT/OT recommend home health.
CAD -history of stents 2004. Plavix on hold due to hematoma. Resume when okay with surgical service.
History of hemorrhagic stroke 2002 -left hemiparesis.
Essential hypertension -stable.
Hyperlipidemia -on simvastatin.
Depression
Diverticulosis
Psoriasis
Full code
Anticipated Discharge: > 48 hours
Subjective/Interval History
-
Date of Service: July 21, 2024
Patient complains of headache, no chest pain or shortness of breath. Afebrile
Objective Data
-
Labs:
Laboratory Results
07/21/24
06:06
WBC 10.5
Hgb 12.7
Hct 37.5
Plt Count 255
Vital Signs:
Vital Signs
Temp Pulse Resp BP Pulse Ox
98.1 F 71 16 111/70 98
07/21/24 07:38 07/21/24 07:38 07/21/24 07:38 07/21/24 07:38 07/21/24 07:38
I&O
07/20/24 07/21/24 07/22/24
06:59 06:59 06:59
Intake Total 3100 / 3100 1680 / 1680
Balance 3100 / 3100 1680 / 1680
[2024-07-21] MEDS: MORPHINE SULFATE 2 MG IV ×3 (12:13→22:30)
[2024-07-21] MEDS: COLACE PO (12:15)
[2024-07-21] MEDS: ASPIR LOW (ENTERIC COATED) PO (12:15)
[2024-07-21] MEDS: MIRALAX PO (12:15)
[2024-07-21] MEDS: KCL PO (12:15)
[2024-07-21] MEDS: CYMBALTA DELAYED RELEASE PO (12:15)
[2024-07-21] MEDS: PROTONIX PO (12:17)
[2024-07-21] MEDS: NSS 1000 IV (13:09)
[2024-07-21] MEDS: ANCEF IV (16:06)
--- NOTE | 2024-07-21 16:49 | W.IMMPOSTOP ---
Addendum entered and electronically signed by Darryn Sam MD 07/21/24 17:04:
#[id number]
Original Note:
Surgical Immed Post Op Note
-
Primary Surgeon: Cecy
Assisting Surgeon: Linette Torres PA-c
Pre-op Diagnosis: Scalp wound secondary to recently infected scalp hematoma/abscess
Post-op Diagnosis: Scalp wound secondary to recently infected scalp hematoma/abscess
Procedure Performed: Washout, sharp excisional debridement and non-excisional debridement scalp wound
Delayed primary closure scalp wound 14 cm x 4 cm
Anesthesia Type: General LMA +1% lidocaine with epinephrine
Specimen / Cultures: None/none
Estimated Blood Loss: 30 mL
Complications: None immediate
Operative Findings: Minimal residual eschar of the dermis and a few areas surrounding previous scalp wound. Clean granulation tissue and minimal exudate cleaned. No further purulence. Wound cavity after sharp excisional debridement and
non-excisional debridement of scalp wound was approximately 14 cm x 4 cm. 15 James drain placed into subcutaneous cavity. Skin edges briefly undermined circumferentially and primary closure with combination of simple interrupted and vertical
mattress 2-0 nylon sutures along the length of wound.
Plan: Continue antibiotics for 10 to 14 days postop to facilitate healing with delayed primary closure given initial infected surgical field
Maintain drain until clear/scant outputs
Hold Plavix additional 36 hours postop (resume 07/23/2024) okay to continue aspirin while Plavix on hold
Daily dressing changes to closed incision site
Left voicemail message on patient's 's phone
[2024-07-21] MEDS: LIPITOR 10 MG PO (18:29)
--- NOTE | 2024-07-21 18:38 | PTCARENOTE ---
Addendum entered by Latia Earl RN 07/21/24 19:23:
When pt arrived from OR, SHERIE drain in place and draining a small amount of serosanguinous fluid.
Original Note:
Pt received from OR. VSS, pulse ox 98% on 2L. AAOx3, rings appropriately. PRN 2mg Morphine given for pain 05/24 when arrived on the unit. Pt resting in bed, call rosas in reach.
[2024-07-21] MEDS: TORADOL 10 MG IV (20:21)
[2024-07-21] MEDS: COLACE 100 MG PO (20:21)
[2024-07-21] MEDS: KCL 20 MEQ PO (20:21)
[2024-07-21] MEDS: CYMBALTA DELAYED RELEASE 60 MG PO (20:21)
[2024-07-21] MEDS: DESYREL 100 MG PO (22:22)
[2024-07-22] MEDS: NSS 1000 IV (02:53)
[2024-07-22 03:50] VITALS: BP 109/58
[2024-07-22 06:00] VITALS: BMI 26.3
[2024-07-22] MEDS: MORPHINE SULFATE 4 MG IV ×2 (06:04→11:12)
[2024-07-22 07:20] VITALS: BP 133/73
[2024-07-22 07:22] LABS: % Basophils 0.2 % (0-2); % Lymphocytes 9.4 % (20.5-51.1); % Monocytes 2.9 % (1.7-9.3); % Neutrophils 86.5 % (42.2-75.2); Absolute Immature Granulocytes 0.2 10^3/uL (0-0.05); Absolute Lymphocytes 1.4 10^3/uL (1.2-3.4); Absolute Monocytes 0.4 10^3/uL (0.1-0.6); Absolute Neutrophils 12.5 10^3/uL (1.4-6.5); Hematocrit 34.5 % (37.0-47.0); Hemoglobin 11.7 g/dL (12.0-16.0); Mean Corp Hgb Conc. 33.9 g/dL (33.0-37.0); Mean Corpuscular Hgb 30.2 pg (27.0-31.0); Mean Corpuscular Volume 89.1 fL (81.0-99.0); Mean Platelet Volume 8.4 fL (7.4-10.4); Nucleated Red Blood Cells % 0 %; Platelet Count 296 10^3/uL (130-400); Red Blood Cell Count 3.87 10^6/uL (4.20-5.40); Red Cell Dist. Width 12.4 % (11.5-14.5); White Blood Cell Count 14.4 10^3/uL (4.8-10.8)
[2024-07-22 07:43] LABS: Blood Urea Nitrogen 14 mg/dl (7-17); Carbon Dioxide 28 mmol/L (22-30); Chloride 101 mmol/L (98-107); Estimated Creatinine Clearance 71 ml/min; Glucose 105 mg/dl (70-99); Potassium 4.5 mmol/L (3.5-5.1); Sodium 138 mmol/L (135-145); eGFR > 60.00
[2024-07-22] MEDS: KCL 20 MEQ PO ×2 (07:52→20:55)
[2024-07-22] MEDS: CYMBALTA DELAYED RELEASE 60 MG PO ×2 (07:52→20:55)
[2024-07-22] MEDS: COLACE 100 MG PO ×2 (07:52→20:55)
[2024-07-22] MEDS: MIRALAX 17 GRAMS PO (07:52)
[2024-07-22] MEDS: ASPIR LOW (ENTERIC COATED) 81 MG PO (07:52)
[2024-07-22] MEDS: ANCEF 10 IV ×3 (07:52→23:05)
[2024-07-22] MEDS: PROTONIX 40 MG PO (07:52)
--- NOTE | 2024-07-22 08:14 | W.PN.HOSP.TC ---
Today's Communication/Plan
-
IV antibiotics
Assessment / Plan
Assessment / Plan
Gen-AAOx3, NAD
HEENT-NC, AT, anicteric, clear oral mm
Neck-supple
CV-reg, no M, +S1/S2
Lungs-clear B/L
Abd-soft, NT, ND
Ext-no edema
Musculoskeletal-no cyanosis, clubbing
Skin-warm and dry, large posterior scalp open wound, hematoma with drainage and surrounding cellulitis
Neuro-grossly non-focal
Psych-calm, cooperative
A/P:
Posterior scalp abscess/cellulitis - due to infected hematoma with drainage. No evidence of sepsis. Suspect patient was picking at her wound prior to admission which may have triggered the infection of the hematoma. Underwent successful drainage
of fluid collection 07/18 in the OR with copious purulent material removed.
WBC count trending down but went up today suspected due to I&D yesterday. Today WBC 14.4
Cultures from the OR show MSSA. MRSA colonizer. Currently on cefazolin and vancomycin. Will stop vancomycin today.
Plavix on hold.
Gen surgery plans s/p further incision and drainage on Sunday. Stop IV fluid. Okay to take IV pain medications as needed.
Acute diarrhea -resolved.
Now constipation-bowel regimen
Hypokalemia -possibly due to GI losses. Magnesium normal. Continue oral repletion. Potassium improved.
Ambulatory dysfunction -uses a cane. PT/OT recommend home health.
CAD -history of stents 2004. Plavix on hold due to hematoma. Resume when okay with surgical service.
History of hemorrhagic stroke 2002 -left hemiparesis.
Essential hypertension -stable.
Hyperlipidemia -on simvastatin.
Depression
Diverticulosis
Psoriasis
Full code
Anticipated Discharge: 24 - 48 hours
Subjective/Interval History
-
Date of Service: July 22, 2024
Patient with constipation. Pain in her hand is much better today. Afebrile
Objective Data
-
Labs:
Laboratory Results
07/22/24
06:57
WBC 14.4 H
Hgb 11.7 L
Hct 34.5 L
Plt Count 296
Sodium 138
Potassium 4.5
Chloride 101
Carbon Dioxide 28
BUN 14
Creatinine 0.7
Glucose 105 H
Calcium 9.0
Vital Signs:
Vital Signs
Temp Pulse Resp BP Pulse Ox
98.4 F 74 16 133/73 95
07/22/24 07:20 07/22/24 07:20 07/22/24 07:20 07/22/24 07:20 07/22/24 07:20
I&O
07/21/24 07/22/24 07/23/24
06:59 06:59 06:59
Intake Total 1680 / 1680 1765 / 1765
Output Total / 15
Balance 1680 / 1680 1750 / 1750
--- NOTE | 2024-07-22 08:59 | W.PN.GS2 ---
Today's Communication / Plan
-
-- No major changes
-- Dispo planning
Assessment / Plan
-
Assessment: 73-year-old female p/w large posterior occipital scalp infected hematoma in the setting of Plavix and trauma
AVSS
Reactive leukocytosis from surgery
Wound Cx: MSSA
Recovering well - Hb stable, SHERIE outputs minimal, no clinical signs of worsening infection
-- Regular diet
-- OK to resume Plavix on 07/23 (48 hours after most recent procedure)
-- SHERIE to remain in place until outputs < 20 cc/day over 48 hours and benign appearing
-- Abx: Cefazolin, will need 14 days following initial surgery on 07/18
-- Daily dressing changes with Xeroform and ABDs, OK to shower
Subjective Data
-
Date of Service: July 22, 2024
No complaints. Pain controlled. Mild soreness from drain and overlying incision. No dizziness or lightheadedness. No drainage from incision reported. Afebrile.
Objective Data
-
Intake and Output
07/21/24 07/22/24 07/23/24
06:59 06:59 06:59
Intake Total 1680 / 1680 1765 / 1765
Output Total
Balance 1680 / 1680 1750 / 1750
Intake:
Oral fluids 1680 / 1680 840 / 840
IV fluids (Total) 925 / 925
norm 100 / 100
IV piggybacks
Output:
Drain Output (Total)
Right Aaron-Chapa
Other:
Number of approximated MODERATE 1 2
amounts of urine
Number of approximated LARGE 1
amounts of urine
How many times incontinent 3
MODERATE amount urine
Vital Signs
Temp Pulse Resp BP Pulse Ox
98.4 F 74 16 133/73 95
07/22/24 07:20 07/22/24 07:20 07/22/24 07:20 07/22/24 07:20 07/22/24 07:20
Lab Results
07/22/24 06:57
07/22/24 06:57
Calcium 9.0 mg/dl (8.4-10.2) 07/22/24 06:57
Magnesium 1.8 mg/dl (1.6-2.3) 07/15/24 05:37
Total Bilirubin 0.4 mg/dl (0.2-1.3) 07/14/24 21:31
AST 33 U/L (14-36) 07/14/24 21:31
ALT 33 U/L (0-35) 07/14/24 21:31
Alkaline Phosphatase 175 U/L (38-126) H 07/14/24 21:31
Total Protein 6.2 g/dl (6.3-8.2) L 07/14/24 21:31
Albumin 3.8 g/dl (3.5-5.0) 07/14/24 21:31
Physical Exam
-
Gen: NAD
HEENT: incision c/d/i - mild reactive erythema, no drainage, no significant ecchymosis, mild purplish discoloration of skin, SHERIE minimal serosang, no purulence
[2024-07-22] MEDS: MILK OF MAGNESIA 30 ML PO (11:12)
--- NOTE | 2024-07-22 12:42 | CM ---
Reviewed chart, Patient progressing well and is near baseline per PT. Patient would still like to return home when medically cleared.
Plan: Case mangement will continue to follow and assist with discharge planning. Home when stable.
[2024-07-22 15:40] VITALS: BP 133/63
--- NOTE | 2024-07-22 16:02 | W.PN.ID1 ---
Date of Service
Date of Service: July 22, 2024
Today's Communication
Continue antibiotics.
Assessment / Plan
Posterior scalp abscess
- S/p evacuation
Hx recent local trauma to scalp.
Leukocytosis
CAD
Hx CVA (2002, with left residual)
HTN
Dyslipidemia
Diverticulitis
Recommendations:
Cultures with MSSA. Vancomycin has been discontinued.
Continue with cefazolin.
Follow white count and temperature curve.
Local care to the wound.
����������������������������������������������������������
Chief Complaint
-: Other (abscess)
Subjective / Review of Systems
Patient seen and examined. Overall feels well. Status post return to the OR yesterday for further washout, closure. SHERIE in place.
Review of Systems: No Fever and No Chills
Vital Signs / Physical Exam
Vital Signs
Vital Signs
Temp Pulse Resp BP Pulse Ox
98.4 F 73 16 133/63 95
07/22/24 15:40 07/22/24 15:40 07/22/24 15:40 07/22/24 15:40 07/22/24 15:40
Physical Exam
Constitutional: No Acute Distress, Comfortable and Non-toxic
Eyes: Sclera Anicteric
Cardiovascular: S1/S2; Negative S3/S4
Pulmonary: Non Labored
Wound: Other (Posterior scalp incisional wound with sutures in place. SHERIE with scant serosanguineous fluid)
Neurological: Awake and Alert
Psychological: Calm
Objective Data
Lab Data
Lab Results
07/22/24 06:57
07/22/24 06:57
Estimated Creat Clear 71 ml/min 07/22/24 06:57
Total Bilirubin 0.4 mg/dl (0.2-1.3) 07/14/24 21:31
AST 33 U/L (14-36) 07/14/24 21:31
ALT 33 U/L (0-35) 07/14/24 21:31
Alkaline Phosphatase 175 U/L (38-126) H 07/14/24 21:31
Most recent labs reviewed.
Micro Results:
07/18/24 13:20 Anaerobic Culture - Preliminary
Scalp Culture pending. Anaerobic cultures are examined after 3
days incubation. Additional information to follow.
07/18/24 13:37 Wound Culture - Preliminary
Scalp S aureus-Methicillin Sensitive
Gram Stain - Preliminary
07/15/24 08:27 MRSA Screen - Final
Nose Staph aureus MRSA
Imaging:
07/14/2024 CT head without contrast: No acute intracranial abnormality noted. No evidence of recent infarction, intracranial hemorrhage or extra-axial fluid collection. Please see full dictation for additional detail.
[2024-07-22 16:03] VITALS: BP 130/69; PULSE 83
[2024-07-22] MEDS: DULCOLAX 10 MG RECTAL (16:41)
[2024-07-22] MEDS: LIPITOR 10 MG PO (17:27)
[2024-07-22] MEDS: MORPHINE SULFATE 2 MG IV (20:54)
[2024-07-22] MEDS: FLUSH (NSS) 2 FLUSH IV ×2 (20:56→23:05)
[2024-07-22] MEDS: DESYREL 100 MG PO (22:41)
[2024-07-22 23:05] VITALS: BP 114/64
[2024-07-22] MEDS: TORADOL 10 MG IV (23:09)
[2024-07-23 05:57] VITALS: BMI 26.4
[2024-07-23 06:38] LABS: % Basophils 0.4 % (0-2); % Eosinophils 1.5 % (0-6); % Immature Granulocytes 1.5 % (0-0.5); % Lymphocytes 32.6 % (20.5-51.1); % Monocytes 5.7 % (1.7-9.3); % Neutrophils 58.3 % (42.2-75.2); Absolute Eosinophils 0.2 10^3/uL (0-0.7); Absolute Immature Granulocytes 0.2 10^3/uL (0-0.05); Absolute Lymphocytes 3.4 10^3/uL (1.2-3.4); Absolute Monocytes 0.6 10^3/uL (0.1-0.6); Absolute Neutrophils 6.1 10^3/uL (1.4-6.5); Hematocrit 32.1 % (37.0-47.0); Hemoglobin 10.9 g/dL (12.0-16.0); Mean Corpuscular Hgb 31.2 pg (27.0-31.0); Mean Platelet Volume 8.3 fL (7.4-10.4); Nucleated Red Blood Cells % 0 %; Platelet Count 230 10^3/uL (130-400); Red Blood Cell Count 3.49 10^6/uL (4.20-5.40); Red Cell Dist. Width 12.4 % (11.5-14.5); White Blood Cell Count 10.4 10^3/uL (4.8-10.8)
[2024-07-23 07:00] VITALS: BP 129/68
[2024-07-23] MEDS: ANCEF 10 IV ×2 (07:21→16:02)
[2024-07-23] MEDS: PROTONIX 40 MG PO (07:21)
[2024-07-23] MEDS: ASPIR LOW (ENTERIC COATED) 81 MG PO (07:21)
[2024-07-23] MEDS: KCL 20 MEQ PO ×2 (07:21→21:06)
[2024-07-23] MEDS: MIRALAX 17 GRAMS PO ×2 (07:21→21:07)
[2024-07-23] MEDS: COLACE 100 MG PO ×2 (07:21→21:06)
[2024-07-23] MEDS: CYMBALTA DELAYED RELEASE 60 MG PO ×2 (07:22→21:06)
--- NOTE | 2024-07-23 09:02 | W.PN.HOSP.TC ---
Today's Communication/Plan
-
Antibiotics. Discharge planning in progress
Assessment / Plan
Assessment / Plan
Gen-AAOx3, NAD
HEENT-NC, AT, anicteric, clear oral mm
Neck-supple
CV-reg, no M, +S1/S2
Lungs-clear B/L
Abd-soft, NT, ND
Ext-no edema
Musculoskeletal-no cyanosis, clubbing
Skin-warm and dry, large posterior scalp sutured wound, bre drain in place
Neuro-grossly non-focal
Psych-calm, cooperative
A/P:
Posterior scalp abscess/cellulitis - due to infected hematoma with drainage, MSSA. No sepsis. Status post I&D x2 and BRE drain. Continue IV antibiotics, cefazolin. Pain control. Okay to resume Plavix per surgery.
Constipation-bowel regimen
Diarrhea, resolved.
Hypokalemia-resolved
Ambulatory dysfunction -uses a cane. PT/OT recommend home health. Patient expresses desire to go to rehab-rn case manager reconsult for discharge disposition.
CAD -history of stents 2004. On aspirin and resume Plavix.
History of hemorrhagic stroke 2002 -left hemiparesis. Antiplatelets and statins.
Essential hypertension -stable.
Hyperlipidemia -on simvastatin.
Depression
Diverticulosis
Psoriasis
Full code
Anticipated Discharge: 24 - 48 hours
Subjective/Interval History
-
Date of Service: July 23, 2024
Patient states pain is improving. Afebrile
Objective Data
-
Labs:
Laboratory Results
07/23/24
06:22
WBC 10.4
Hgb 10.9 L
Hct 32.1 L
Plt Count 230 D
Sodium Pending
Potassium Pending
Chloride Pending
Carbon Dioxide Pending
BUN Pending
Creatinine Pending
Glucose Pending
Calcium Pending
Vital Signs:
Vital Signs
Temp Pulse Resp BP Pulse Ox
97.8 F 76 16 129/68 97
07/23/24 07:00 07/23/24 07:00 07/23/24 07:00 07/23/24 07:00 07/23/24 07:00
I&O
07/22/24 07/23/24 07/24/24
06:59 06:59 06:59
Intake Total 5 / 1764 488.8 / 488.8
Output Total
Balance 1750 / 1750 477.8 / 477.8
[2024-07-23 09:27] LABS: Blood Urea Nitrogen 17 mg/dl (7-17); Calcium 8.7 mg/dl (8.4-10.2); Carbon Dioxide 25 mmol/L (22-30); Chloride 104 mmol/L (98-107); Estimated Creatinine Clearance 71 ml/min; Glucose 85 mg/dl (70-99); Potassium 4.4 mmol/L (3.5-5.1); Sodium 138 mmol/L (135-145); eGFR > 60.00
[2024-07-23] MEDS: MORPHINE SULFATE 2 MG IV (10:25)
[2024-07-23] MEDS: MILK OF MAGNESIA 30 ML PO (11:07)
--- NOTE | 2024-07-23 11:47 | W.PN.GS2 ---
Today's Communication / Plan
-
Abx per ID
CM for placement
Pain regimen adjustments
Assessment / Plan
-
Assessment: 73-year-old female p/w large posterior occipital scalp infected hematoma in the setting of Plavix and trauma
AVSS
Reactive leukocytosis from surgery
Wound Cx: MSSA
Recovering well - Hb stable, SHERIE outputs minimal, no clinical signs of worsening infection
-- Regular diet
-- Add oswaldo PO pain meds
-- OK to resume Plavix today
-- SHERIE to remain in place until outputs < 20 cc/day over 48 hours and benign appearing
-- Abx: Cefazolin, will need 14 days following initial surgery on 07/18, defer to ID on when PO conversion would be approp
-- Daily dressing changes with Xeroform and ABDs, OK to shower
-- CM consult for rehab placement
Subjective Data
-
Date of Service: July 23, 2024
AFVSS, a bit tearful this am, she is sole caregiver to her at home and she does not feel able to return home, she is asking for options for a short stay rehab. Issues with pain control and high IV pain med reqs
Objective Data
-
Intake and Output
07/22/24 07/23/24 07/24/24
06:59 06:59 06:59
Intake Total 1765 / 1765 488.8 / 488.8
Output Total
Balance 1750 / 1750 477.8 / 477.8 -2 / -2
Intake:
Oral fluids 840 / 840 360 / 360
IV fluids (Total) 925 / 925 118.8 / 118.8
norm 100 / 100
IV piggybacks
Output:
Drain Output (Total) 15 / 15 11 / 11 2 / 2
Right Aaron-Chapa 2 / 2
Other:
Number of approximated MODERATE 2 2
amounts of urine
Number of approximated LARGE 1
amounts of urine
Vital Signs
Temp Pulse Resp BP Pulse Ox
97.8 F 76 16 129/68 97
07/23/24 07:00 07/23/24 07:00 07/23/24 07:00 07/23/24 07:00 07/23/24 07:00
Lab Results
07/23/24 06:22
07/23/24 06:22
Calcium 8.7 mg/dl (8.4-10.2) 07/23/24 06:22
Magnesium 1.8 mg/dl (1.6-2.3) 07/15/24 05:37
Total Bilirubin 0.4 mg/dl (0.2-1.3) 07/14/24 21:31
AST 33 U/L (14-36) 07/14/24 21:31
ALT 33 U/L (0-35) 07/14/24 21:31
Alkaline Phosphatase 175 U/L (38-126) H 07/14/24 21:31
Total Protein 6.2 g/dl (6.3-8.2) L 07/14/24 21:31
Albumin 3.8 g/dl (3.5-5.0) 07/14/24 21:31
Physical Exam
-
Gen: NAD
Scalp: minor erytema/bruising around incision is stable, drain with minimal ss output, incision cdi with sutures
[2024-07-23] MEDS: TYLENOL 1000 MG PO ×2 (12:24→17:06)
[2024-07-23] MEDS: ROXICODONE 5 MG PO ×2 (14:36→21:45)
[2024-07-23 14:49] VITALS: BP 102/65; PULSE 75; O2SAT 97
[2024-07-23 15:00] VITALS: BP 108/65
--- NOTE | 2024-07-23 15:16 | W.PN.ID1 ---
Date of Service
Date of Service: July 23, 2024
Today's Communication
Continue antibiotics
Assessment / Plan
Posterior scalp abscess
- S/p evacuation
Hx recent local trauma to scalp.
Leukocytosis
CAD
Hx CVA (2002, with left residual)
HTN
Dyslipidemia
Diverticulitis
Recommendations:
Cultures with MSSA.
Continue with cefazolin. Would recommend an additional 7 to 10 days of antibiotic therapy.
Follow SHERIE output.
Follow white count and temperature curve.
Continue local care to the wound.
����������������������������������������������������������
Chief Complaint
-: Other (abscess)
Subjective / Review of Systems
Review of Systems: No Fever and No Chills
Vital Signs / Physical Exam
Vital Signs
Vital Signs
Temp Pulse Resp BP Pulse Ox
97.8 F 76 16 129/68 97
07/23/24 07:00 07/23/24 07:00 07/23/24 07:00 07/23/24 07:00 07/23/24 07:00
Physical Exam
Constitutional: No Acute Distress, Comfortable and Non-toxic
Eyes: Sclera Anicteric
Cardiovascular: S1/S2; Negative S3/S4
Pulmonary: Non Labored
Wound: Other (Posterior scalp incisional wound with sutures in place. SHERIE with scant serosanguineous fluid. Little surrounding skin erythema)
Neurological: Awake and Alert
Psychological: Calm
Objective Data
Lab Data
Lab Results
07/23/24 06:22
07/23/24 06:22
Estimated Creat Clear 71 ml/min 07/23/24 06:22
Total Bilirubin 0.4 mg/dl (0.2-1.3) 07/14/24 21:31
AST 33 U/L (14-36) 07/14/24 21:31
ALT 33 U/L (0-35) 07/14/24 21:31
Alkaline Phosphatase 175 U/L (38-126) H 07/14/24 21:31
Most recent labs reviewed.
Micro Results:
07/18/24 13:20 Anaerobic Culture - Preliminary
Scalp Culture pending. Anaerobic cultures are examined after 3
days incubation. Additional information to follow.
07/18/24 13:37 Wound Culture - Preliminary
Scalp S aureus-Methicillin Sensitive
Gram Stain - Preliminary
07/15/24 08:27 MRSA Screen - Final
Nose Staph aureus MRSA
Imaging:
07/14/2024 CT head without contrast: No acute intracranial abnormality noted. No evidence of recent infarction, intracranial hemorrhage or extra-axial fluid collection. Please see full dictation for additional detail.
[2024-07-23] MEDS: PLAVIX 75 MG PO (16:07)
--- NOTE | 2024-07-23 16:59 | CM ---
Received consult that patient would like SNF. Met with patient and she stated that her spouse does not have the ability to support her at home and she feels deconditioned. She stated that she would like local facilities faxed: [facility], and [facility]. Will fax referrals through [employer].
Plan: Case management will continue to follow and assist with discharge planning. SNF if auth is obtained, otherwise home with VN.
[2024-07-23] MEDS: LIPITOR 10 MG PO (17:05)
[2024-07-23] MEDS: DESYREL 100 MG PO (21:22)
[2024-07-23 23:00] VITALS: BP 125/65
[2024-07-24] MEDS: TYLENOL 1000 MG PO ×3 (00:32→12:02)
[2024-07-24] MEDS: FLUSH (NSS) 2 FLUSH IV (00:32)
[2024-07-24] MEDS: ANCEF 10 IV ×3 (00:32→15:15)
--- NOTE | 2024-07-24 01:01 | PTCARENOTE ---
SHERIE drain not compressing. Can hear air filling. Small amount of serosanguineous fluid in bulb. TT with pictures to Dr. Carson.
[2024-07-24] MEDS: ROXICODONE 5 MG PO ×2 (05:15→13:35)
[2024-07-24 06:00] VITALS: BMI 26.4
[2024-07-24] MEDS: PROTONIX 40 MG PO (07:35)
[2024-07-24] MEDS: ASPIR LOW (ENTERIC COATED) 81 MG PO (07:35)
[2024-07-24] MEDS: PLAVIX 75 MG PO (07:36)
[2024-07-24] MEDS: KCL 20 MEQ PO (07:36)
[2024-07-24] MEDS: COLACE 100 MG PO (07:36)
[2024-07-24] MEDS: CYMBALTA DELAYED RELEASE 60 MG PO (07:36)
[2024-07-24] MEDS: MIRALAX 17 GRAMS PO (07:37)
--- NOTE | 2024-07-24 08:25 | W.PN.HOSP.TC ---
Today's Communication/Plan
-
Discharge planning.
Assessment / Plan
Assessment / Plan
Gen-AAOx3, NAD
HEENT-NC, AT, anicteric, clear oral mm
Neck-supple
CV-reg, no M, +S1/S2
Lungs-clear B/L
Abd-soft, NT, ND
Ext-no edema
Musculoskeletal-no cyanosis, clubbing
Skin-warm and dry, large posterior scalp sutured wound, bre out.
Neuro-grossly non-focal
Psych-calm, cooperative
A/P:
Posterior scalp abscess/cellulitis - due to infected hematoma with drainage, MSSA. No sepsis. Status post I&D x2 and BRE drain. Continue IV antibiotics, cefazolin. Pain control. Tolerated well Plavix. Clear for discharge from ID and surgery.
Planning discharge--> bilingual case manager for discharge disposition.
Constipation-bowel regimen
Diarrhea, resolved.
Hypokalemia-resolved
Ambulatory dysfunction -uses a cane. PT/OT recommend home health. Patient expresses desire to go to rehab-bilingual case manager reconsult for discharge disposition.
CAD -history of stents 2004. On aspirin and resume Plavix.
History of hemorrhagic stroke 2002 -left hemiparesis. Antiplatelets and statins.
Essential hypertension -stable.
Hyperlipidemia -on simvastatin.
Depression
Diverticulosis
Psoriasis
Full code
Anticipated Discharge: Today
Subjective/Interval History
-
Date of Service: July 24, 2024
Patient doing well today. Afebrile
Objective Data
-
Vital Signs:
Vital Signs
Temp Pulse Resp BP Pulse Ox
97.4 F 70 18 125/65 96
07/23/24 23:00 07/23/24 23:00 07/23/24 23:00 07/23/24 23:00 07/23/24 23:00
I&O
07/23/24 07/24/24 07/25/24
06:59 06:59 06:59
Intake Total 488.8 / 488.8 740 / 740
Output Total
Balance 477.8 / 477.8 736 / 736
[2024-07-24 08:44] VITALS: BP 124/71
--- NOTE | 2024-07-24 08:53 | W.PN.GS2 ---
Today's Communication / Plan
-
`
Assessment / Plan
-
Assessment: 73-year-old female p/w large posterior occipital scalp infected hematoma in the setting of Plavix and trauma
POD# 6 and #3 from surgical debridement/drainage and delayed primary closure
AFVSS
Wound Cx: MSSA
SHERIE removed as no longer holding closed suction, some localized dermal eschar as anticipated but sutures holding. clearly at risk for wound dehiscence which i discussed with pt
Plan: okay to continue plavix
would favor longer course of abx with drain having to be removed early and closure of contaminated wound (~2weeks?)
Daily dressing changes with Xeroform and ABDs, OK to shower
will follow, but okay for d/c from surgical standpoint and would follow up with myself for incision/wound/suture checks
Subjective Data
-
Date of Service: July 24, 2024
pt seen at examined
doing okay, some pain predominantly at side towards drain exit
Objective Data
-
Intake and Output
07/23/24 07/24/24 07/25/24
06:59 06:59 06:59
Intake Total 488.8 / 488.8 740 / 740
Output Total
Balance 477.8 / 477.8 736 / 736
Intake:
Oral fluids 360 / 360 740 / 740
IV fluids (Total) 118.8 / 118.8
IV piggybacks
Output:
Drain Output (Total)
Right Aaron-Chapa
Other:
Number of approximated MODERATE 2 1
amounts of urine
Vital Signs
Temp Pulse Resp BP Pulse Ox
98.3 F 79 16 124/71 96
07/24/24 08:44 07/24/24 08:44 10/10/24 08:44 07/24/24 08:44 07/24/24 08:44
Lab Results
07/23/24 06:22
07/23/24 06:22
Calcium 8.7 mg/dl (8.4-10.2) 07/23/24 06:22
Magnesium 1.8 mg/dl (1.6-2.3) 07/15/24 05:37
Total Bilirubin 0.4 mg/dl (0.2-1.3) 07/14/24 21:31
AST 33 U/L (14-36) 07/14/24 21:31
ALT 33 U/L (0-35) 07/14/24 21:31
Alkaline Phosphatase 175 U/L (38-126) H 07/14/24 21:31
Total Protein 6.2 g/dl (6.3-8.2) L 07/14/24 21:31
Albumin 3.8 g/dl (3.5-5.0) 07/14/24 21:31
Physical Exam
-
NAD AAOx3
posterior neck wound - sutures intact but some central dry escar. localized erythema stable. no fluctuance
SHERIE in place but no longer holding suction
--- NOTE | 2024-07-24 12:01 | W.DCSUMMARY ---
Discharge Summary
Discharge Data
Date of Admission: 07/14/24
Date of Discharge: 07/24/24
-
Pending Results: No
Hospital Course
Patient is 74 years old female history of CAD, CVA, came into the hospital with a scalp cellulitis and infected hematoma/abscess. Surgery consulted. Plavix was held and she had I&D x 2. SHERIE drain was placed temporarily but taken out later. She
was able to tolerate Plavix back. ID also was consulted. She grew MSSA from scalp wound. She was treated with IV antibiotic and responded adequately. WBC count as high as 22,000 and it went down to normal 10,000. She remained afebrile. Pain
was difficult to control but tolerable with current regimen. She will continue to be on IV antibiotics for 14 more days. ID and surgery cleared her for discharge today. She will go to skilled rehab today in stable condition.
Discharge duration: 37 minutes
Discharge Plan
-
Patient Disposition: Senior Care/SNF
Discharge Diagnosis/Procedures: Occipital scalp infected hematoma methicillin sensitive Staphylococcus aureus. History of coronary artery disease.
Diet: Low Cholesterol
Activity: As tolerated
Blood Work: Please PCP to order CBC, BMP within 1 week
Referrals:
Hipolito Demarco MD [Family Provider] - in less than 1 week
Additional Discharge Medication Instructions: IV Cefazolin to continue for 14 days rather than 10 days.
Prescriptions:
New
polyethylene glycol 3350 [HealthyLax] 17 gram Powder In Packet
17 g PO BID Qty: 0 0RF
aspirin 81 mg Tablet,Delayed Release (Dr/Ec)
81 mg PO DAILY 30 Days Qty: 0 0RF
cefazolin 10 gram Recon Soln
2 g IV Q8H 10 Days Qty: 0 0RF
oxycodone 10 mg Tablet
10 mg PO Q4HPRN PRN (Reason: sev pain) Qty: 4 0RF
Continued
hydrochlorothiazide 25 MG tablet
25 mg PO DAILY
duloxetine 60 MG capsule,delayed release(DR/EC)
60 mg PO BID
PreserVision AREDS 1 CAP capsule
1 cap PO BID
trazodone 100 MG tablet
100 mg PO HS
simvastatin 20 MG tablet
20 mg PO QPM
nitroglycerin 0.4 MG tablet, sublingual
0.4 mg sublingual Q2PP3QSM PRN (Reason: chest pain)
multivitamin with folic acid [Tab-A-Yuliya] 1 TABLET tablet
1 tab PO DAILY
acetaminophen 650 mg Tablet Extended Release
1,300 mg PO Q12H
loperamide 2 mg Tablet
2 mg PO BIDPRN PRN (Reason: diarrhea)
cyclosporine [Restasis] 0.05 % Dropperette
1 drp BOTH EYES Q12H
clopidogrel 75 MG tablet
75 mg PO DAILY
Discontinued
tramadol 50 mg Tablet
50 mg PO BIDPRN PRN (Reason: moderate pain )
Discharge Orders:
Discharge Patient (As Directed); Ordered 07/24/24
Ordered By: Jimbo Torre
Discharge Date and Time
Discharge Date/Time: 07/24/24 19:08
Print Language: AUSTRIAN
--- NOTE | 2024-07-24 13:47 | CM ---
Received notification that patient is medically cleared for discharge. [facility] confirmed that they can take patient. Placed a call to Kiley in admissions at [facility], who confirmed bed availability for today. Met with patient who is
agreeable to [facility]. Placed a call to patient's insurance and auth was received: 5 days skilled level of care NRD 07/28 Auth# [id number] review needs to be called into, . (Provided by Carla)
Placed a call to Kiley in admissions to update. She stated that the number for report is, fax is,
Met with patient who stated that her sister will provide transportation.
Attending updated as well as RN and ID ([facility] community facilitator).
Plan: Case management will continue to follow and assist with discharge planning. Transfer to [facility] Today
Address for [facility]: [address] [place] [address].
--- NOTE | 2024-07-24 15:04 | W.PN.ID1 ---
Date of Service
Date of Service: July 24, 2024
Today's Communication
Continue antibiotics. See below�
Assessment / Plan
Posterior scalp abscess
- S/p evacuation
Hx recent local trauma to scalp.
Leukocytosis
CAD
Hx CVA (2002, with left residual)
HTN
Dyslipidemia
Diverticulitis
Recommendations:
Cultures with MSSA.
Continue with cefazolin. Case discussed with Surgery, and given extent of infection, will continue with an additional 14 days of cefazolin.
Right upper extremity midline placed.
Antibiotic prescription given to case management.
����������������������������������������������������������
Chief Complaint
-: Other (occipital abscess)
Subjective / Review of Systems
Review of Systems: No Fever and No Chills
Vital Signs / Physical Exam
Vital Signs
Vital Signs
Temp Pulse Resp BP Pulse Ox
98.3 F 79 16 124/71 96
07/24/24 08:44 07/24/24 08:44 07/24/24 08:44 07/24/24 08:44 07/24/24 08:44
Physical Exam
Constitutional: No Acute Distress, Comfortable and Non-toxic
Eyes: Sclera Anicteric
Cardiovascular: S1/S2; Negative S3/S4
Pulmonary: Non Labored
Wound: Other (Posterior scalp incisional wound with sutures in place. SHERIE out. Little surrounding skin erythema.)
Neurological: Awake and Alert
Psychological: Calm
Objective Data
Lab Data
Lab Results
07/23/24 06:22
07/23/24 06:22
Estimated Creat Clear 71 ml/min 07/23/24 06:22
Total Bilirubin 0.4 mg/dl (0.2-1.3) 07/14/24 21:31
AST 33 U/L (14-36) 07/14/24 21:31
ALT 33 U/L (0-35) 07/14/24 21:31
Alkaline Phosphatase 175 U/L (38-126) H 07/14/24 21:31
Most recent labs reviewed.
Micro Results:
07/18/24 13:37 Wound Culture - Final
Scalp S aureus-Methicillin Sensitive
Gram Stain - Final
07/18/24 13:20 Anaerobic Culture - Final
Scalp NO ANAEROBES ISOLATED
07/15/24 08:27 MRSA Screen - Final
Nose Staph aureus MRSA
Imaging:
07/14/2024 CT head without contrast: No acute intracranial abnormality noted. No evidence of recent infarction, intracranial hemorrhage or extra-axial fluid collection. Please see full dictation for additional detail.
Care Review
Plan reviewed with: Physician (Hospitalist; General surgery)
[2024-07-24 15:12] VITALS: BP 130/76
== END 2024-07-24 19:08 | DRG 580 ==
LOC: 3 WEST ACU 23:40
PROVIDERS: Hospitalist; Physician Assistant; Physician Assistant Medical; Surgery; ADMITTING PHYSICIAN Internal Medicine; ATTENDING PHYSICIAN Hospitalist; CONSULT PHYSICIAN Internal Medicine Infectious Disease; EMERGENCY PHYSICIAN Emergency Medicine; FAMILY PHYSICIAN Family Medicine; OTHER PHYSICIAN Surgery
PROC: 0HB0XZZ Excision of Scalp Skin, External Approach (ICD-10-PCS; 2024-07-18)
PROC: 0HC0XZZ Extirpation of Matter from Scalp Skin, External Approach (ICD-10-PCS; 2024-07-18)
PROC: 0JD00ZZ Extraction of Scalp Subcutaneous Tissue and Fascia, Open Approach (ICD-10-PCS; 2024-07-21)
PROC: 0J9 Subcutaneous Tissue and Fascia, Drainage (ICD-10-PCS; 2024-07-21)
DX: L02.811 Cutaneous abscess of head [any part, except face] (principal); I69.354 Hemiplegia and hemiparesis following cerebral infarction affecting left non-dominant side; I96 Gangrene, not elsewhere classified; L03.811 Cellulitis of head [any part, except face]; R11.0 Nausea; R19.7 Diarrhea, unspecified; R53.1 Weakness; E87.6 Hypokalemia; W22.09XA Striking against other stationary object, initial encounter; Y93.9 Activity, unspecified; Y92.000 Kitchen of unspecified non-institutional (private) residence as the place of occurrence of the external cause; I10 Essential (primary) hypertension; E78.00 Pure hypercholesterolemia, unspecified; L40.8 Other psoriasis; I25.10 Atherosclerotic heart disease of native coronary artery without angina pectoris; S00.03XA Contusion of scalp, initial encounter; F32.A Depression, unspecified; R26.2 Difficulty in walking, not elsewhere classified; F41.9 Anxiety disorder, unspecified; T50.2X5A Adverse effect of carbonic-anhydrase inhibitors, benzothiadiazides and other diuretics, initial encounter; R53.83 Other fatigue; B95.61 Methicillin susceptible Staphylococcus aureus infection as the cause of diseases classified elsewhere; R53.81 Other malaise; K59.00 Constipation, unspecified; Z96.612 Presence of left artificial shoulder joint; Z96.642 Presence of left artificial hip joint; Z79.02 Long term (current) use of antithrombotics/antiplatelets; Z95.5 Presence of coronary angioplasty implant and graft; Z90.49 Acquired absence of other specified parts of digestive tract; Z87.19 Personal history of other diseases of the digestive system; Z88.5 Allergy status to narcotic agent; Z88.8 Allergy status to other drugs, medicaments and biological substances; Z91.041 Radiographic dye allergy status; Z22.322 Carrier or suspected carrier of Methicillin resistant Staphylococcus aureus
CPT/HCPCS: 70450; 80048; 80053; 80202; 83735; 85025; 85027; 86850; 86900; 86901; 87070; 87075; 87147; 87186; 87205; 97110; 97116; 97162; 97166; 97530; 97535; 99285